=== PATIENT | female | born 1985 | race Caucasian/White ===

== ENCOUNTER 2021-09-26 15:47 | Emergency (ER) | payer OTHER, SELFPAY ==
--- NOTE | ~2021-09-26 | CT_ITS ---
EXAMINATION: CT abdomen pelvis wo con DATE: 09/26/2021 19:25 INDICATION: Flank pain, lower back pain, bilateral hip pain starting today. History kidney stones. TECHNIQUE: Computed tomography (CT) of the abdomen and pelvis was performed without intravenous contr ast. Automated exposure control and iterative reconstruction technique were employed. Exam dose: 740 .49 mGy-cm total exam DLP. COMPARISON: May 06, 2014 CT abdomen pelvis FINDINGS: Normal heart size. No pericardial or pleural effusion. The lung bases are clear of infiltra te or consolidation. The liver, gallbladder, bile ducts, spleen, pancreas, pancreatic duct, and adrenal glands appear norm al. 2.6 mm nonobstructing upper pole left renal calculus 2.4 mm nonobstructing upper pole right renal calculus. No ureteral calculus or hydroureteronephrosis. The uterus is unremarkable. Left ovary unremarkable. Approximately 3.5 x 3.7 cm right dermoid, with soft tissue and fat density and calcification. Normal caliber of the abdominal aorta. No intraperitoneal or retroperitoneal or pelvic mass lesion or adenopathy or ascites is noted otherwise. Normal appendix. No bowel obstruction. Minimal diverticulosis of the descending colon; no CT evidence of diverticulitis.. No intraperitoneal free air. No suspicious osteolytic or osteoblastic lesions. IMPRESSION: Right adnexal dermoid tumor Minimal diverticulosis of the left colon; no CT evidence of diverticulitis Small nonobstructing calculus of each kidney; no hydroureteronephrosis Reviewed, dictated and finalized at [facility] Reviewed, dictated and finalized at [facility].
[2021-09-26 15:51] VITALS: BP 142/80; PULSE 124; RESP 18; TEMP 37.3; O2SAT 100
[2021-09-26] MEDS: ONDANSETRON INJ 4 MG/2 ML VIAL IV PUSH (17:01)
[2021-09-26] MEDS: MORPHINE SULFATE (*CRX) 4 MG/ML INJ IV PUSH ×2 (17:01→19:29)
[2021-09-26] MEDS: SODIUM CHLORIDE 0.9% IV 1,000 ML 999 ML IV CONT ×2 (17:01→19:53)
[2021-09-26 17:11] LABS: Basophils Percent Auto 0.4 % (0.2-1.2); Eosinophils Absolute Auto 0.1 K/mm3 (0-0.3); Hematocrit 42.2 % (37.0-47.0); Hemoglobin 13.8 g/dL (12.0-15.0); Immature Granulocyte Absolute 0.06 K/mm3 (0.00-0.031); Immature Granulocyte Percent A 0.7 % (0-0.5); Lymphocytes Absolute Auto 0.32 K/mm3 (0.9-3.2); Lymphocytes Percent Auto 3.9 % (18.3-44.2); Mean Corpuscular HGB Conc 32.7 g/dl (32-36); Mean Corpuscular Hemoglobin 29.7 pg (26-34); Mean Corpuscular Volume 90.8 fl (80-100); Mean Platelet Volume 11.1 fl (7.4-10.4); Monocytes Absolute Auto 0.7 K/mm3 (0.1-0.6); Neutrophils Absolute Auto 6.9 K/mm3 (1.3-6.7); Platelet Count Result 244 k/mm3 (150-375); Red Blood Count 4.65 M/mm3 (4.2-5.4); White Blood Count 8.1 K/mm3 (4.5-10.0)
[2021-09-26 17:48] LABS: SARS-CoV-2 RNA PCR Positive
[2021-09-26 18:20] LABS: Influenza A QL RT-PCR Negative (Negative); Influenza B QL RT-PCR Negative (Negative)
--- NOTE | 2021-09-26 19:11 | ED.GENADULT ---
HPI - General Adult General Chief complaint: Back Pain/Injury Stated complaint: low back pain Time Seen by Provider: 09/26/21 16:17 History of Present Illness HPI narrative: Patient is a 36-year-old female who presents ER with right-sided back pain. Reports she woke up this morning began having progressive increase in the pain in her back. Also located in her hips. Reports she has been having fevers and chills today. No runny nose or sore throat has had a mild dry cough. No known sick contacts. No urinary frequency urgency or dysuria. Pain worse with movement and occasionally grabs her. No nausea or vomiting. Has history of kidney stones in the past. Has not had a kidney infection previously. Related Data Allergies Allergy/AdvReac Type Severity Reaction Status Date / Time No Known Allergies Allergy Verified 09/26/21 19:28 Review of Systems Review of Systems: All systems reviewed & are unremarkable except as noted in HPI and below Constitutional: Constitutional: Reports chills, Reports fatigue, Reports fever(s) and Denies weakness ENT: Denies nasal congestion and Denies sore throat Cardiovascular: Cardiovascular: Denies chest pain, Denies rapid heart rate and Denies radiating jaw, neck or arm pain Respiratory: Respiratory: Denies cough and Denies dyspnea Gastrointestinal: Gastrointestinal: Denies abdominal pain, Denies constipation, Reports nausea and Reports vomiting Genitourinary: Genitourinary: Denies nocturia, Denies dysuria and Reports flank pain Musculoskeletal: Musculoskeletal: Reports myalgias, Denies arthralgias and Denies joint swelling Neurologic: Denies headache(s), Denies focal weakness and Denies numbness PMFSH Past Medical History Medical History (Updated 09/26/21 @ 20:16 by David Willingham MD) ADHD Anxiety disorder, unspecified Elevated blood sugar Encounter for gynecological examination (general) (routine) without abnormal findings Encounter for preventative adult health care examination History of kidney stones Hypertension Neutrophilic leukocytosis Pre-menstrual mood disorder Screening for cervical cancer Severe obesity (BMI >= 40) Traumatic hematoma of right knee Type 2 diabetes mellitus without complications Surgical History Surgical History (Updated 09/26/21 @ 19:34 by David Willingham MD) No pertinent past surgical history Family History Family History Father Depression Anxiety Mother Anxiety Depression Sibling Anxiety Depression Social History Social History Smoking status: Former smoker Second hand tobacco smoke exposure: No Smoking end date: 03/22/14 Alcohol intake: current Substance use: never 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 HEAD: Normocephalic, atraumatic. NECK: Supple. CHEST: Clear to auscultation. No respiratory distress. HEART: Tachycardic and regular. Normal peripheral pulses. ABDOMEN: Soft, nontender, nondistended. Right CVA tenderness. Back: No midline tenderness of the thoracic and lumbar spine. No reproducible paraspinal muscular tenderness on the left side. There is tenderness in the right CVA region with percussion as well as palpation and with spasm noted. No upper paraspinal thoracic tenderness or lower lumbar paraspinal tenderness. EXTREMITIES: Normal range of motion. No edema. SKIN: Warm, dry, no rash. NEURO: Alert and oriented x3. PSYCH: Normal mood and affect. Course Course Emergency Course: Patient feeling improved. Given 2 L of IV fluid. She is unvaccinated against COVID. Will prescribe Paxlovid. Discussed isolation at home for total 5 days and then wearing a mask in public for an additional 5 days after that. Patient to contact PCP
[2021-09-26 19:19] LABS: Appearance Urine Clear (Clear); Bilirubin Urine Negative (Negative); Blood Urine Negative (Negative); Color Urine Yellow (Yellow); Glucose Urine UA Negative (Negative); Ketones Urine 4+ mg/dL (Negative); Leukocyte Esterase Ur Negative LEU/UL (Negative); Nitrate Urine Negative (Negative); Protein Urine Trace mg/dL (Negative); Urobilinogen Urine 0.2 mg/dL (<2.0)
[2021-09-26 19:25] LABS: Add Urine Microscopic? YES; Mucus Urine Rare /lpf; RBC Urine 0-2 /hpf (0-2); Squamous Epithelial Cell Urine Few /hpf (Few); WBC Urine 0-3 /hpf
[2021-09-26 19:37] LABS: Alanine Aminotransferase 30 U/L (6-35); Albumin Level 4.5 g/dL (3.5-5.1); Alkaline Phosphatase 114 U/L (38-126); Anion Gap 8 mmol/L (8-16); Aspartate Amino Transferase 27 U/L (14-36); Bilirubin,Total 0.1 mg/dL (0.2-1.3); Blood Urea Nitrogen 6 mg/dL (7-17); Calcium 8.7 mg/dL (8.4-10.2); Carbon Dioxide 24 mmol/L (22-30); Chloride 103 mmol/L (98-107); Estimated CRCL calculation 128 ml/min; Estimated Glomerular Filt Rate > 60; Glucose 156 mg/dL (65-110); Potassium 3.5 mmol/L (3.4-5.0); Sodium 135 mmol/L (137-145)
[2021-09-26 19:38] LABS: Lactic Acid Reflex 1.3 mmol/L (0.7-2.0)
[2021-09-26 20:46] VITALS: BP 127/81; PULSE 115; RESP 16; O2SAT 98
== END 2021-09-26 20:47 | disposition home or self-care (01) ==
PROVIDERS: Emergency Provider Emergency Medicine; PCP Internal Medicine
DX: U07.1 COVID-19 (principal); D27.0 Benign neoplasm of right ovary; I10 Essential (primary) hypertension; E66.01 Morbid (severe) obesity due to excess calories; Z68.30 Body mass index [BMI] 30.0-30.9, adult; E11.9 Type 2 diabetes mellitus without complications; Z28.310 Unvaccinated for COVID-19; Z87.442 Personal history of urinary calculi; Z87.891 Personal history of nicotine dependence; K57.90 Diverticulosis of intestine, part unspecified, without perforation or abscess without bleeding; N20.0 Calculus of kidney; Z79.84 Long term (current) use of oral hypoglycemic drugs
CPT/HCPCS: 36415; 74176; 80053; 81001; 81025; 83605; 85025; 87502; 96361; 96374; 96375; 96376; 99284; C9803; J2270; J2405; J7030; U0003; U0005

== ENCOUNTER 2022-01-26 14:24 | Outpatient (CLI) | payer OTHER, SELFPAY ==
[2022-01-26 19:07] LABS: Hemoglobin A1C 7.2 % (<5.7)
== END 2022-01-26 14:25 | disposition home or self-care (01) ==
LOC: ANHGOSHLAB 14:27
PROVIDERS: PCP Family Medicine; Visit Provider Family Medicine
DX: E11.9 Type 2 diabetes mellitus without complications (principal)
CPT/HCPCS: 36415; 83036

== ENCOUNTER 2022-02-08 07:52 | Emergency (ER) | payer OTHER, SELFPAY ==
--- NOTE | ~2022-02-08 | XR_ITS ---
EXAMINATION: XR shoulder RT min 2V DATE: 02/08/2022 08:20 INDICATION: Right shoulder pain TECHNIQUE: AP internally and externally rotated, AP oblique externally rotated and transscapular Y vi ews of the right shoulder were obtained. COMPARISON: None FINDINGS: Normal alignment. No fracture. Glenohumeral joint is normal. Mild right acromioclavicular osteoarthr itis. Soft tissues are unremarkable. IMPRESSION: Mild right acromioclavicular osteoarthritis. Reviewed, dictated and finalized at [facility]. TELEPHONE TRIAGE
[2022-02-08 07:53] VITALS: BP 140/92; PULSE 105; RESP 18; TEMP 36.8; O2SAT 100
--- NOTE | 2022-02-08 09:12 | ED.GENADULT ---
HPI - General Adult General Chief complaint: Extremity Injury, Upper Stated complaint: right shoulder pain Time Seen by Provider: 02/08/22 09:01 History of Present Illness HPI narrative: 37-year-old female presents for evaluation of constant tenderness in the scalene muscles on her right side which radiates down her arm at times. Pain is worse with movement and she has tried everything and the pain is not improving. She has seen her primary doctor and informs me that he did nothing . During further conversation patient shares with me that he has offered physical therapy as well as given her medication recommendations but she does not believe any of it will work . She denies trauma. She denies limited range of motion. She denies loss of sensation or strength. Patient admits to sleeping on her abdomen with her head turned to the right side. Related Data Allergies Allergy/AdvReac Type Severity Reaction Status Date / Time No Known Allergies Allergy Verified 01/26/22 16:39 Review of Systems Review of Systems: CONSTITUTIONAL: Denies fever, chills, or sweats. EYES: Denies visual changes, redness, or discharge. ENT: Denies rhinorrhea, congestion, sore throat, or otalgia. CARDIOVASCULAR: Denies chest pain, palpitations, or edema. RESPIRATORY: Denies cough or dyspnea. GASTROINTESTINAL: Denies abdominal pain, nausea, vomiting, or diarrhea. GENITOURINARY: Denies dysuria or hematuria. SKIN: Denies rash or itching. MUSCULOSKELETAL: Denies back pain, joint pain, or myalgia. NEUROLOGIC: Denies headache, numbness, or weakness. PSYCHIATRIC: Denies anxiety or depression. [facility] Past Medical History Medical History ADHD Anxiety disorder, unspecified Elevated blood sugar Encounter for gynecological examination (general) (routine) without abnormal findings Encounter for preventative adult health care examination History of kidney stones Hypertension Neutrophilic leukocytosis Pre-menstrual mood disorder Screening for cervical cancer Severe obesity (BMI >= 40) Traumatic hematoma of right knee Type 2 diabetes mellitus without complications Surgical History Surgical History No pertinent past surgical history Family History Family History Father Depression Anxiety Mother Anxiety Depression Sibling Anxiety Depression Social History Social History Smoking status: Former smoker Second hand tobacco smoke exposure: No Smoking end date: 03/22/14 Alcohol intake: current Substance use: never 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 HEAD: Normocephalic, atraumatic. EYES: PERRLA and EOMI. ENT: Nares clear, no rhinorrhea or epistaxis. Mucous membranes moist. NECK: Supple. Full range of motion CHEST: Clear to auscultation. No respiratory distress. HEART: Regular rate and rhythm. No murmur heard. Normal peripheral pulses. ABDOMEN: Soft, nontender, nondistended, normal active bowel sounds. EXTREMITIES: Normal range of motion. No edema. Palpable muscle spasm noted at posterior and middle scalene. 5 out of 5 strength and full range of motion both passively and actively SKIN: Warm, dry, no rash. NEURO: No focal deficits. Alert and oriented x3. PSYCH: Normal mood and affect. Anxious, tearful, confrontational Course Vital Signs Vital signs: Vital Signs Temperature 98.2 F 02/08/22 07:53 Pulse Rate 105 H 02/08/22 07:53 Respiratory Rate 18 02/08/22 07:53 Blood Pressure 140/92 H 02/08/22 07:53 Pulse Oximetry 100 02/08/22 07:53 Temperature 98.2 F 02/08/22 07:53 Pulse Rate 105 H 02/08/22 07:53 Respiratory Rate 18 02/08/22 07:53 Blo
[2022-02-08] MEDS: IBUPROFEN 600 MG TABLET PO (09:30)
== END 2022-02-08 09:30 | disposition home or self-care (01) ==
PROVIDERS: Emergency Provider Emergency Medicine; PCP Family Medicine
DX: M62.838 Other muscle spasm (principal); I10 Essential (primary) hypertension; E11.9 Type 2 diabetes mellitus without complications; E66.01 Morbid (severe) obesity due to excess calories; Z68.29 Body mass index [BMI] 29.0-29.9, adult; F90.9 Attention-deficit hyperactivity disorder, unspecified type; F41.9 Anxiety disorder, unspecified; Z87.442 Personal history of urinary calculi; Z79.84 Long term (current) use of oral hypoglycemic drugs; Z87.891 Personal history of nicotine dependence
CPT/HCPCS: 73030; 99283; A9270

== ENCOUNTER 2022-04-29 12:40 | Outpatient (CLI) | payer OTHER, SELFPAY ==
[2022-04-29 20:52] LABS: Beta HCG Quantitative 29.45 mIU/ML
== END 2022-04-29 12:41 | disposition home or self-care (01) ==
LOC: ANHGOSHLAB 12:41
PROVIDERS: PCP Family Medicine; Visit Provider Family Medicine
DX: Z32.01 Encounter for pregnancy test, result positive (principal)
CPT/HCPCS: 36415; 84443; 84702

== ENCOUNTER 2022-04-30 11:07 | Outpatient (CLI) | payer OTHER, SELFPAY ==
--- NOTE | ~2022-04-30 | US_ITS ---
EXAMINATION: US thyroid DATE: 04/30/2022 11:47 INDICATION: Nontoxic goiter. TECHNIQUE: Multiple ultrasound images of the thyroid were obtained. COMPARISON: None. FINDINGS: The right thyroid lobe measures 3.1 x 1.7 x 2.3 cm. The left thyroid lobe measures 3.7 x 1.3 x 1.9 c m. In the left thyroid lobe, there is a 5 mm solid, hypoechoic, wider than tall nodule with smooth m argin without echogenic foci (TI-RADS TR4). IMPRESSION: 1. Small thyroid nodule, likely not clinically significant. No follow-up is needed. Reviewed, dictated and finalized at [facility]. [employer] IMPRESSION: 1. Small thyroid nodule, likely not clinically significant. No follow-up is nee ded.
== END 2022-04-30 11:08 | disposition home or self-care (01) ==
PROVIDERS: PCP Family Medicine; Visit Provider Family Medicine
DX: E04.9 Nontoxic goiter, unspecified (principal)
CPT/HCPCS: 76536

== ENCOUNTER 2022-05-05 13:03 | Outpatient (CLI) | payer OTHER, SELFPAY | END 2022-05-05 13:04 | disposition home or self-care (01) | LOC: ANHGOSHLAB 13:04 | PROVIDERS: PCP Family Medicine; Visit Provider Family Medicine | DX: N92.6 Irregular menstruation, unspecified (principal); Z32.01 Encounter for pregnancy test, result positive | CPT/HCPCS: 36415; 84702 ==

== ENCOUNTER 2022-06-02 14:25 | Outpatient (CLI) | payer OTHER, SELFPAY ==
--- NOTE | 2022-06-02 14:32 | ECG_ITS ---
Measurements Intervals [place] Rate: 83 P: 15 MN: 113 QRS: 59 QRSD: 91 T: 13 QT: 346 QTc: 407 Interpretive Statements SINUS RHYTHM WITH SHORT MN INTERVAL INCOMPLETE RIGHT BUNDLE BRANCH BLOCK BORDERLINE ST-T WAVE ABNORMALITY- ANT/INF LEADS BASELINE ARTIFACT- V3-V6 BORDERLINE ECG NO PREVIOUS ECG AVAILABLE FOR COMPARISON Electronically Signed On 06-02-2022 15:15:23 CDT by Morgan Almanzar D.O.
== END 2022-06-02 14:26 | disposition home or self-care (01) ==
PROVIDERS: PCP Family Medicine; Visit Provider Obstetrics & Gynecology
DX: I10 Essential (primary) hypertension (principal); Z01.818 Encounter for other preprocedural examination; I45.10 Unspecified right bundle-branch block
CPT/HCPCS: 36415; 93005

== ENCOUNTER 2022-06-10 00:56 | Day surgery (SDC) | payer OTHER, SELFPAY ==
[2022-05-27 09:52] VITALS: BMI 30.4
--- NOTE | 2022-05-27 10:16 | SUR.PREOP ---
Report to the Outpatient Waiting Room, entrance under the green pavilion located off [facility], at time 0800 on date. Planned Procedure Time: 1000. Time changes happen often and if your time is changed the preop area will call you the afternoon before. - You and your visitor will be asked to self-screen and do not enter if you have any COVID symptoms. - Only one visitor is requested with a max of two and NO children visitors are allowed at this time. - The patient visitor may be requested to leave or wait in car when not with patient due to distancing restrictions. - A mask is optional within the hospital at this time. Patients may have clear liquids (water, carbonated beverages, clear teas, apple juice) until 3 hours prior to surgery with a maximum of 20 ounces. - No food from midnight until time of surgery 20 OUNCES BEFORE 0700AM - Infants may have breast milk until 4 hours before surgery, infant formula 6 hours prior to surgery. - Children will be allowed to drink immediately following surgery. If applicable, please bring a bottle or sippy cup to assist with drinking. Juice, water, soda, and popsicles are readily available. For infants on formula, please bring formula the day of surgery. Pacifiers are allowed. Take the following medications with a SIP of water the morning of surgery: ESCITALOPRAM, BUSPIRONE DO NOT STOP ANY OF YOUR OTHER PRESCRIPTION MEDICATIONS PRIOR TO SURGERY ?EXCEPT THE FOLLOWING Medications to discontinue per physician __METFORMIN, LISINOPRIL MORNING OF PROCEDURE Date to take last dose Please no make-up, nail macanese, hairspray, perfume, deodorant, or body powder the day of surgery. No jewelry (including any body piercings) or valuables the day of surgery, leave them at home. Please take a shower or bath the night before, or the morning of, surgery with an antibacterial soap. Wear comfortable, loose fitting clothing. Children are encouraged to wear pajamas. - Jewelry must be removed prior to entering the operating room. Rings and piercings that are not removed may be cut off. - The hospital will not accept responsibility for valuables. - Please leave all valuables, including medications, at home the day of surgery. If you are going home after surgery, a licensed school bus driver/teacher assistant must drive you home. - NO public transportation without another adult if you receive anesthesia. - We recommend that an adult stay with you for 24 hours following discharge. - We also recommend that you do not drive, make important decision, drink alcoholic beverages, or take any drugs that were not prescribed by your health care provider for at least 24 hours after your discharge time. For Pediatric surgeries, we recommend two adults accompany the child home. Follow any additional instructions given to you from your surgeon. If you or anyone in your household have experienced Covid symptoms in the past week, please notify your surgeon or the nurse liaison at the phone number below for possible testing. Telephone instructions given to PATIENT and asked if any additional questions and then verbalized understanding. Patient advised to call surgeon office or pre surgery nurse liaison [phone] if any additional questions.
[2022-06-10] VITALS (10 sets, daily range): BP systolic 121–145; BP diastolic 65–94; PULSE 86–121; RESP 14–24; TEMP 36.5–36.6; O2SAT 97–100
[2022-06-10] MEDS: ACETAMINOPHEN 500 MG TABLET 1000 MG PO (08:13)
[2022-06-10] MEDS: LACTATED RINGERS 1,000 ML 30 ML IV CONT ×2 (08:31→11:31)
[2022-06-10] MEDS: KETOROLAC 15 MG/ML VIAL (*BKC) IV PUSH (08:33)
[2022-06-10] MEDS: SCOPOLAMINE 1.5 MG PATCH TRANSDERM (08:33)
--- NOTE | 2022-06-10 08:45 | WPDANESEPPF ---
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 Patient Data Age: 37 Gender: F Height: 1.7 m Weight: 87.5 kg Last Vital Signs Temp 36.6 C 06/10/22 08:08 Pulse 121 H 06/10/22 08:08 Resp 18 06/10/22 08:08 BP 145/88 H 06/10/22 08:08 Pulse Ox 100 06/10/22 08:08 O2 Del Method Room Air 06/10/22 08:08 Allergies Allergy/AdvReac Type Severity Reaction Status Date / Time No Known Allergies Allergy Verified 06/10/22 07:55 Home Medications Medication Instructions Recorded Confirmed Type blood-glucose meter (Blood Glucose #1 ea 05/20/20 06/10/22 Rx Monitoring kit) blood sugar diagnostic (OneTouch #100 ea 05/21/20 06/10/22 Rx Ultra Blue Test Strip) lancets (OneTouch UltraSoft #100 ea 05/21/20 06/10/22 Rx Lancets) lisinopril 5 mg tablet 5 mg PO DAILY #90 tabs 07/18/21 06/10/22 Rx metformin 500 mg tablet 1,000 mg PO BID #360 tabs 11/10/21 06/10/22 Rx dulaglutide 1.5 mg/0.5 mL 1.5 mg (0.5 mL) subcut WEEKLY #2 mL 03/02/22 06/10/22 Rx subcutaneous pen injector (Trulicity) buspirone 10 mg tablet 15 mg PO BID #90 tabs 05/12/22 06/10/22 Rx escitalopram oxalate 20 mg tablet 20 mg PO DAILY #90 tabs 05/28/22 06/10/22 Rx Laboratory Tests 06/10/22 08:24 Sodium Pending Potassium Pending Chloride Pending Carbon Dioxide Pending Anion Gap Pending BUN Pending Creatinine Pending Estim Creat Clear Calc Pending Estimated GFR Pending Glucose Pending Calcium Pending Patient hx anesthesia problems: none Family hx anesthesia problems: none Results Review: All pre-operative results and documents have been reviewed as part of the pre-operative evaluation. [facility] Past Medical History Medical History ADHD Anxiety disorder, unspecified Elevated blood sugar Encounter for gynecological examination (general) (routine) without abnormal findings Encounter for preventative adult health care examination History of kidney stones Hypertension Neutrophilic leukocytosis Pre-menstrual mood disorder Screening for cervical cancer Severe obesity (BMI >= 40) Traumatic hematoma of right knee Type 2 diabetes mellitus without complications Surgical History Surgical History No pertinent past surgical history Family History Family History Father Depression Anxiety Mother Anxiety Depression Sibling Anxiety Depression Social History Social History Smoking status: Never smoker Second hand tobacco smoke exposure: No Smoking end date: 03/22/14 Alcohol intake: former Substance use: never Lack of Transportation: No Lack of Food: Never True Current Housing: I Have Housing Concerned About Future Housing: No Difficulty Paying Gas/Electric Bills: No Difficulty Paying for Meds: No Currently Unemployed: No Education: High School Diploma/GED Difficulty w/ Childcare or Family Care: No Living arrangements: with family Occupation/Education: other 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
[2022-06-10 08:55] LABS: Anion Gap 8 mmol/L (8-16); Blood Urea Nitrogen 9 mg/dL (7-17); Carbon Dioxide 27 mmol/L (22-30); Chloride 105 mmol/L (98-107); Estimated CRCL calculation 126 ml/min; Estimated Glomerular Filt Rate > 60; Glucose 137 mg/dL (65-110); Potassium 3.9 mmol/L (3.4-5.0); Sodium 140 mmol/L (137-145)
[2022-06-10] MEDS: MIDAZOLAM HCL (*CRX) 2 MG/2 ML VIAL IV PUSH (08:55)
--- NOTE | 2022-06-10 09:31 | WPDHPUPDATE1 ---
History and Physical Update Update Date/Time: 06/10/22 09:31 History and Physical has been reviewed, including an updated exam of the patient. There are NO changes in the patient's condition. Risks, benefits, and alternatives have been discussed and questions answered. Patient agrees to proceed with procedure.
--- NOTE | 2022-06-10 10:53 | P.OP_ITS ---
Procedure Note - Detailed Date of Procedure 06/10/22 Pre-op Diagnosis benign keratoma of ovary Post-op Diagnosis Same Procedure Performed Right ovarian cystectomy Surgeon Do Darden MD Anesthesia General Indications right ovarian mass Findings 5 cm ovarian teratoma Description of Procedure The patient was taken to the operating room. She was prepped and draped in the dorsal lithotomy position after induction general anesthesia. A 5 mm incision was made with a scalpel on the abdominal skin in the left upper quadrant of the abdomen. A 5 mm trocar was inserted into the intra-abdominal cavity under direc t visualization the scope. In the same fashion a 11 mm left lower quadrant trocar was inserted and a 5 mm infraumbilical trocar was inserted. right ovarian cystectomy was performed using scissors, cautery, graspers. The mass was placed in an endobag and taken out the left lower quadrant trocar. The mucinous fluid was drained from the cyst was suctioned from the pelvis and a copious irrigation was used to rinse the pelvis. About 50% of the right ovary remained. The pelvis was irrigated. The pneumoperitoneum was reduced. The trocars were removed. Skin was closed with subcuticular 4 micro. The patient's incisions were covered with Dermabond. She was taken recovery room in stable condition. Sponge lap and needle counts were correct x2. Complications No immediate complications Condition Stable Disposition Same day
[2022-06-10 11:14] LABS: Glucose Point of Care 119 mg/dl (65-105)
[2022-06-10] MEDS: fentaNYL CITRATE INJ (*CRX) 100 MCG/2 ML VIAL 25 MCG IV PUSH ×8 (11:18→11:40)
[2022-06-10] MEDS: HYDROmorphone HCL INJ (*CRX) 1 MG/ML SYR 0.5 MG IV PUSH ×2 (11:51→11:57)
[2022-06-10] MEDS: oxyCODONE HCL (*CRX) 5 MG TAB IR PO (12:30)
== END 2022-06-10 13:21 | disposition home or self-care (01) ==
PROVIDERS: Anesthesiology; PCP Family Medicine; Visit Provider Obstetrics & Gynecology
PROC: (CPT 49320; principal; 2022-06-10 10:00)
DX: D27.0 Benign neoplasm of right ovary (principal); E11.9 Type 2 diabetes mellitus without complications; I10 Essential (primary) hypertension; F41.9 Anxiety disorder, unspecified; F90.9 Attention-deficit hyperactivity disorder, unspecified type; E66.9 Obesity, unspecified; Z68.30 Body mass index [BMI] 30.0-30.9, adult; Z79.84 Long term (current) use of oral hypoglycemic drugs; Z79.899 Other long term (current) drug therapy
CPT/HCPCS: 58661; 36415; 80048; 82948; 88305; A9270; J1100; J1170; J1885; J2250; J2405; J2704; J2710; J3010; J7030; J7120

== ENCOUNTER 2022-09-24 15:18 | Emergency (ER) | payer OTHER, SELFPAY ==
[2022-09-24] VITALS (7 sets, daily range): BP systolic 134–155; BP diastolic 66–82; PULSE 77–96; RESP 8–19; TEMP 36.4; O2SAT 98–100
--- NOTE | ~2022-09-24 | CT_ITS ---
EXAMINATION: CT abdomen pelvis wo con DATE: 09/24/2022 17:47 INDICATION: Left flank pain. History kidney stones. TECHNIQUE: Computed tomography (CT) of the abdomen and pelvis was performed without intravenous contr ast. Automated exposure control and iterative reconstruction technique were employed. Exam dose: 720 .98 mGy-cm total exam DLP. COMPARISON: 09/26/2021 CT abdomen pelvis FINDINGS: The lung bases are clear. Normal heart size. No pericardial or pleural effusion. The liver, gallbladder, bile ducts, spleen, pancreas, pancreatic duct, and adrenal glands are unremar kable. A couple of subtle pinpoint nonobstructing right renal calculi are noted. Suggestion of very subtle s mall pinpoint nonobstructing left renal calculus. No ureteral calculi or hydroureteronephrosis are noted. Urinary bladder, uterus and adnexal areas are unremarkable. Normal caliber of the abdominal aorta. No intraperitoneal or retroperitoneal or pelvic mass lesion or adenopathy or ascites. Normal appendix. No bowel obstruction, bowel wall thickening, pneumatosis or intraperitoneal free air is detected. Normal caliber of the abdominal aorta. No intraperitoneal or retroperitoneal or pelvic mass lesion or adenopathy or ascites. Very small fat-containing umbilical hernia. Included skeletal structures are unremarkable. IMPRESSION: Minimal nonobstructive nephrolithiasis; no ureteral calculus or hydroureteronephrosis Normal appendix Reviewed, dictated and finalized at [facility]. Reviewed, dictated and finalized at [facility]. IMPRESSION: Minimal nonobstructive nephrolithiasis; no ureteral calculus or hy droureteronephrosis Normal appendix
--- NOTE | 2022-09-24 16:02 | ED.FEMALEGU ---
HPI - Female Genitourinary General Chief complaint: Urogenital-Female <Iron Dumont APRN - Last Filed: 09/24/22 18:15> Stated complaint: kidney stones <Iron Dumont APRN - Last Filed: 09/24/22 18:15> Time Seen by Provider: 09/24/22 15:55 <Iron Dumont APRN - Last Filed: 09/24/22 18:15> History of Present Illness HPI Narrative: 37-year-old female history of kidney stones, diabetes anxiety presents to the emergency room for evaluation of left flank pain. Onset of pain was sudden. States pain radiates into her left pelvic region. Associated with nausea vomiting and inability to get comfortable. <Iron Dumont APRN - Last Filed: 09/24/22 18:15> Related Data Allergies/Adverse reactions: Allergies Allergy/AdvReac Type Severity Reaction Status Date / Time No Known Allergies Allergy Verified 07/30/22 10:01 <Iron Dumont APRN - Last Filed: 09/24/22 18:15> Review of Systems Review of Systems: CONSTITUTIONAL: Denies fever, chills, or sweats. EYES: Denies visual changes, redness, or discharge. ENT: Denies rhinorrhea, congestion, sore throat, or otalgia. CARDIOVASCULAR: Denies chest pain, palpitations, or edema. RESPIRATORY: Denies cough or dyspnea. GASTROINTESTINAL: Reports flank pain and nausea GENITOURINARY: Denies dysuria or hematuria. SKIN: Denies rash or itching. MUSCULOSKELETAL: Denies back pain, joint pain, or myalgia. NEUROLOGIC: Denies headache, numbness, dizziness, or weakness. PSYCHIATRIC: Denies anxiety or depression. <Iron Dumont APRN - Last Filed: 09/24/22 18:15> PMFSH Past Medical History Medical History: Medical History ADHD Anxiety disorder, unspecified Elevated blood sugar Encounter for gynecological examination (general) (routine) without abnormal findings Encounter for preventative adult health care examination History of kidney stones Hypertension Neutrophilic leukocytosis Pre-menstrual mood disorder Screening for cervical cancer Severe obesity (BMI >= 40) Traumatic hematoma of right knee Type 2 diabetes mellitus without complications <Iron Dumont APRN - Last Filed: 09/24/22 18:15> Surgical History Surgical History: Surgical History H/O removal of cyst Removed from cyst 06/10/2022 No pertinent past surgical history <Iron Dumont APRN - Last Filed: 09/24/22 18:15> Family History Family History: Family History Father Depression Anxiety Mother Anxiety Depression Sibling Anxiety Depression <Iron Dumont APRN - Last Filed: 09/24/22 18:15> Social History Social History: Social History Smoking status: Never smoker Second hand tobacco smoke exposure: No Smoking end date: 03/22/14 Alcohol intake: former Substance use: never Lack of Transportation: No Lack of Food: Never True Current Housing: I Have Housing Concerned About Future Housing: No Difficulty Paying Gas/Electric Bills: No Difficulty Paying for Meds: No Currently Unemployed: No Education: High School Diploma/GED Difficulty w/ Childcare or Family Care: No Living arrangements: with family Occupation/Education: other 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 HEAD: Normocephalic, atraumatic. EYES: Conjunctivae normal, PERRLA and EOMI. CHEST: Clear to auscultation. No respiratory distress. No wheezes rales or rhonchi. HEART: Regular rate and rhythm. No murmur heard. Normal peripheral pulses. ABD: Left lower quadrant tenderness, bowel sounds present x4 no
[2022-09-24] MEDS: ONDANSETRON INJ 4 MG/2 ML VIAL IV PUSH (16:20)
[2022-09-24] MEDS: SODIUM CHLORIDE 0.9% IV 1,000 ML 999 ML IV CONT (16:21)
[2022-09-24] MEDS: MORPHINE SULFATE (*CRX) 4 MG/ML INJ IV PUSH (16:21)
[2022-09-24] MEDS: KETOROLAC 30 MG/ML VIAL (*BKC) IV PUSH (16:21)
[2022-09-24 16:28] LABS: Basophils Absolute Auto 0.1 K/mm3 (0.0-0.1); Basophils Percent Auto 0.4 % (0.2-1.2); Eosinophils Absolute Auto 0.4 K/mm3 (0-0.3); Eosinophils Percent Auto 2.2 % (0-4.4); Hematocrit 45.6 % (37.0-47.0); Hemoglobin 14.6 g/dL (12.0-15.0); Immature Granulocyte Absolute 0.07 K/mm3 (0.00-0.031); Immature Granulocyte Percent A 0.4 % (0-0.5); Lymphocytes Absolute Auto 2.48 K/mm3 (0.9-3.2); Lymphocytes Percent Auto 14.9 % (18.3-44.2); Mean Corpuscular Hemoglobin 30.3 pg (26-34); Mean Corpuscular Volume 94.6 fl (80-100); Mean Platelet Volume 10.6 fl (7.4-10.4); Monocytes Absolute Auto 0.9 K/mm3 (0.1-0.6); Monocytes Percent Auto 5.4 % (2.6-8.5); Neutrophils Absolute Auto 12.8 K/mm3 (1.3-6.7); Neutrophils Percent Auto 76.7 % (45.5-73.1); Platelet Count Result 265 k/mm3 (150-375); Red Blood Count 4.82 M/mm3 (4.2-5.4); Red Cell Distribution Width 12.8 % (11.5-14.5); White Blood Count 16.6 K/mm3 (4.5-10.0)
[2022-09-24 16:36] LABS: Alanine Aminotransferase 21 U/L (6-35); Albumin Level 4.5 g/dL (3.5-5.1); Alkaline Phosphatase 108 U/L (38-126); Anion Gap 10 mmol/L (8-16); Aspartate Amino Transferase 27 U/L (14-36); Bilirubin,Total 0.6 mg/dL (0.2-1.3); Blood Urea Nitrogen 11 mg/dL (7-17); Calcium 9.6 mg/dL (8.4-10.2); Carbon Dioxide 27 mmol/L (22-30); Chloride 102 mmol/L (98-107); Estimated CRCL calculation 97 ml/min; Estimated Glomerular Filt Rate > 60; Glucose 144 mg/dL (65-110); Lipase 79 U/L (23-300); Potassium 4.2 mmol/L (3.4-5.0); Sodium 139 mmol/L (137-145)
[2022-09-24 17:29] LABS: Appearance Urine Cloudy (Clear); Bacteria Urine None Seen /hpf; Bilirubin Urine Negative (Negative); Blood Urine 3+ (Negative); Color Urine Yellow (Yellow); Glucose Urine UA Negative (Negative); Ketones Urine 1+ mg/dL (Negative); Leukocyte Esterase Ur Negative LEU/UL (Negative); Nitrate Urine Negative (Negative); Non Pathogenic Casts 0-2; Protein Urine Trace mg/dL (Negative); RBC Urine >100 /hpf (0-2); Specific Grav Ur 1.021 (1.001-1.035); Squamous Epithelial Cell Urine Occasional /hpf (Few); Urobilinogen Urine 0.2 mg/dL (<2.0); WBC Urine 0-5 /hpf
[2022-09-24 17:45] LABS: Add Urine Microscopic? YES
== END 2022-09-24 19:59 | disposition home or self-care (01) ==
PROVIDERS: Nurse Practitioner Family; Emergency Provider Nurse Practitioner Family; PCP Family Medicine
DX: R10.9 Unspecified abdominal pain (principal); E11.9 Type 2 diabetes mellitus without complications; I10 Essential (primary) hypertension
CPT/HCPCS: 36415; 74176; 80053; 81001; 81025; 83690; 85025; 96361; 96374; 96375; 99284; J1885; J2270; J2405; J7030

== ENCOUNTER 2022-11-17 17:49 | Emergency (ER) | payer OTHER, SELFPAY ==
--- NOTE | 2022-11-17 18:05 | ED.URI ---
HPI - URI/Sore Throat General Chief Complaint: Upper Respiratory Infection Stated Complaint: flu like symptoms Source: patient and RN notes reviewed History of Present Illness HPI Narrative: 37 yo F presents to urgent care with complaints of body aches, specifically her back. Pt reports fevers at home and a sore throat initially that is improving. Pt denies any vomiting, diarrhea, abdominal pain, or ear pain. Pt reports having chest pain earlier, states she has a little when she takes a deep breath. Pt has taken Tylenol at home. Related Data Home Medications Medication Instructions Recorded Confirmed alprazolam 0.5 mg tablet 0.5 mg PO PRN PRN anxiety 11/17/22 11/17/22 Allergies Allergy/AdvReac Type Severity Reaction Status Date / Time No Known Allergies Allergy Verified 11/17/22 18:06 Review of Systems Review of Systems: Pertinent positives and pertinent negatives per HPI. [facility] Past Medical History Medical History ADHD Anxiety disorder, unspecified Elevated blood sugar Encounter for gynecological examination (general) (routine) without abnormal findings Encounter for preventative adult health care examination History of kidney stones Hypertension Neutrophilic leukocytosis Pre-menstrual mood disorder Screening for cervical cancer Severe obesity (BMI >= 40) Traumatic hematoma of right knee Type 2 diabetes mellitus without complications Surgical History Surgical History H/O removal of cyst Removed from cyst 06/10/2022 No pertinent past surgical history Family History Family History Father Depression Anxiety Mother Anxiety Depression Sibling Anxiety Depression Social History Social History Smoking status: Never smoker Second hand tobacco smoke exposure: No Smoking end date: 03/22/14 Alcohol intake: former Substance use: never Lack of Transportation: No Lack of Food: Never True Current Housing: I Have Housing Concerned About Future Housing: No Difficulty Paying Gas/Electric Bills: No Difficulty Paying for Meds: No Currently Unemployed: No Education: High School Diploma/GED Difficulty w/ Childcare or Family Care: No Living arrangements: with family Occupation/Education: other 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 There is no relevant family history pertinent to the patient complaint. Exam Narrative: GENERAL: This is a well-nourished, well-developed patient, in no apparent distress. HEAD: normocephalic, atraumatic. EYES: Sclera clear/white. Vision is grossly intact. EARS: External ears normal, auditory canals clear and without drainage. Hearing grossly intact. NOSE: External nose normal with no obvious nasal discharge, nares without redness, no rhinorrhea. THROAT: Mucous membranes moist, posterior pharynx clear. NECK: Neck supple, non-tender without lymphadenopathy, masses or thyromegaly. CARDIOVASCULAR: Regular rate and rhythm without murmurs, gallops, or rubs. RESPIRATORY: Clear to auscultation. Breath sounds equal bilaterally. No wheezes, rales, or rhonchi. SKIN: warm, intact with no suspicious lesions or rash, good texture and turgor. NEURO: awake, alert, and oriented to person, place and time. There were no obvious focal neurologic abnormalities. Course Course Level of Care: Express Care Visit Vital Signs Vital signs: reviewed MDM - URI/Sore Throat MDM Narrative Medical decision making narrative: Stay home for 5 days. If you have no symptoms or your symptoms are resolving after 5 days, you can leave your house. If you
[2022-11-17 18:10] VITALS: BP 158/99; PULSE 108; RESP 18; TEMP 36.9; O2SAT 100
== END 2022-11-17 18:32 | disposition home or self-care (01) ==
PROVIDERS: Emergency Provider Nurse Practitioner Family; PCP Family Medicine
DX: U07.1 COVID-19 (principal); Z87.891 Personal history of nicotine dependence; I10 Essential (primary) hypertension; E66.01 Morbid (severe) obesity due to excess calories; Z68.29 Body mass index [BMI] 29.0-29.9, adult; E11.9 Type 2 diabetes mellitus without complications; Z79.84 Long term (current) use of oral hypoglycemic drugs; F41.9 Anxiety disorder, unspecified
CPT/HCPCS: 87426; 87804; 99213; C9803; G0463

== ENCOUNTER 2023-05-09 07:48 | Emergency (ER) | payer OTHER, SELFPAY ==
--- NOTE | ~2023-05-09 | CT_ITS ---
EXAMINATION: CTA chest PE protocol DATE: 05/09/2023 09:04 INDICATION: Tachycardia and left-sided chest pain TECHNIQUE: Computed tomography (CT) pulmonary angiogram of the chest was performed with 100 mL Omnipa que-350 intravenous contrast. Additional 3D reconstructions utilizing coronal maximum intensity proje ction (MIP) were performed. Automated exposure control and iterative reconstruction technique were em ployed. The dose-length product was 320.68 mGy-cm. COMPARISON: None FINDINGS: No pulmonary embolism. There are some mosaic attenuation in the dependent lungs corresponding to mild atelectasis with subsegmental regions of more lucent air trapping likely related to small airway dis ease. No pneumonia, pulmonary edema, pleural effusion or pneumothorax. Heart size is normal. No peric ardial or pleural effusion. Thoracic aorta is normal in caliber with no dissection. No pathologically enlarged thoracic lymphadenopathy. 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 Visualized u pper abdomen is unremarkable. Chronic appearing mild likely physiologic anterior wedging at T12. IMPRESSION: 1. No pulmonary embolism. 2. Mosaic attenuation in the dependent lungs consistent with likely dependent atelectasis with small regions of subsegmental air trapping related to small airway disease. 3. Mild thymic hyperplasia. Reviewed, dictated and finalized at [facility]. SECURITY PROJECT MANAGER IMPRESSION: 1. No pulmonary embolism. 2. Mosaic attenuation in the dependent lungs consistent with likely dependent a telectasis with small regions of subsegmental air trapping related to small air way disease. 3. Mild thymic hyperplasia.
--- NOTE | ~2023-05-09 | XR_ITS ---
EXAMINATION: XR chest 2V DATE: 05/09/2023 08:47 INDICATION: 2 days of left-sided chest pain TECHNIQUE: PA and lateral views of the chest were obtained. COMPARISON: None FINDINGS: The lungs are clear with no focal airspace opacities, pulmonary edema, pleural effusion or pneumothor ax. The cardiomediastinal silhouette is normal. Peripheral IV at the medial right upper arm. Visualiz ed bones and soft tissues are unremarkable. IMPRESSION: 1. No acute cardiopulmonary disease. Reviewed, dictated and finalized at location [facility]. RT CAR DRIVER
--- NOTE | 2023-05-09 07:50 | ECG_ITS ---
Measurements Intervals [place] Rate: 123 P: 89 IL: 131 QRS: 92 QRSD: 81 T: -76 QT: 267 QTc: 382 Interpretive Statements SINUS TACHYCARDIA BORDERLINE RIGHT AXIS DEVIATION [QRS AXIS > 90] MARKED ST SEGMENT DEPRESSION CONSISTENT WITH ISCHEMIA ABNORMAL ECG COMPARED TO ECG 06/02/2022 14:47:57 HEART RATE INCREASED AND ST SEGMENT DEPRESSION IS MORE PRONOUNCED Electronically Signed On 05-09-2023 8:14:13 THERAPEUTIC ACTIVITIES SERVICES WORKER by Armani Pritchard M.D.
[2023-05-09 07:55] VITALS: BP 146/105; PULSE 122; RESP 14; TEMP 37; O2SAT 100
[2023-05-09 08:08] VITALS: BP 159/138; PULSE 128; RESP 18; O2SAT 100
--- NOTE | 2023-05-09 08:13 | ED.CHESTPAIN ---
HPI - Chest Pain General Chief Complaint: Chest Pain Stated Complaint: CP Time Seen by Provider: 05/09/23 07:56 History of Present Illness HPI narrative: This is a 38-year-old female, with history of diabetes and anxiety, presents emergency department complaining of chest pain for the past day. Patient states pain began yesterday afternoon, is described as dull rated 6/10 without aggravating or alleviating factors. The patient states pain has gradually improved to a 3/10. She has no other complaints at this time. Related Data Home Medications Medication Instructions Recorded Confirmed venlafaxine 75 mg capsule,extended 75 mg PO DAILY 02/01/23 02/01/23 release 24 hr (Effexor XR) Allergies Allergy/AdvReac Type Severity Reaction Status Date / Time No Known Allergies Allergy Verified 02/01/23 10:06 Review of Systems Review of Systems: CONSTITUTIONAL: Denies fever, chills, or sweats. CARDIOVASCULAR: Chest pain Denies palpitations, or edema. RESPIRATORY: Denies cough or dyspnea. GASTROINTESTINAL: Denies abdominal pain, nausea, vomiting, or diarrhea. GENITOURINARY: Last menstrual period 3 weeks ago; Denies dysuria or hematuria. SKIN: Denies rash or itching. MUSCULOSKELETAL: Denies back pain, joint pain, or myalgia. NEUROLOGIC: Denies headache, numbness, dizziness, or weakness. PSYCHIATRIC: Denies anxiety or depression. [facility] Past Medical History Medical History ADHD Anxiety disorder, unspecified Elevated blood sugar Encounter for gynecological examination (general) (routine) without abnormal findings Encounter for preventative adult health care examination History of kidney stones Hypertension Neutrophilic leukocytosis Pre-menstrual mood disorder Screening for cervical cancer Severe obesity (BMI >= 40) Traumatic hematoma of right knee Type 2 diabetes mellitus without complications Surgical History Surgical History H/O removal of cyst Removed from cyst 06/10/2022 No pertinent past surgical history Family History Family History Father Depression Anxiety Mother Anxiety Depression Sibling Anxiety Depression Social History Social History Smoking status: Current some day smoker Second hand tobacco smoke exposure: No Smoking end date: 03/22/14 Alcohol intake: former Substance use: never Lack of Transportation: No Lack of Food: Never True Current Housing: I Have Housing Concerned About Future Housing: No Difficulty Paying Gas/Electric Bills: No Difficulty Paying for Meds: No Currently Unemployed: No Education: High School Diploma/GED Difficulty w/ Childcare or Family Care: No Living arrangements: with family 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 EYES: PERRLA and EOMI. CHEST: Clear to auscultation. No respiratory distress. No wheezes rales or rhonchi HEART: Tachycardic with regular rhythm. No murmur heard. Normal peripheral pulses. ABDOMEN: Soft, nontender, nondistended, normal active bowel sounds. EXTREMITIES: Normal range of motion. No edema. SKIN: Warm, dry, no rash. NEURO: Alert and oriented x3. No focal deficit. Moving all 4 limbs spontaneously PSYCH: Normal mood and affect. Course Course Emergency Course: 10:29 - CBC demonstrates slightly elevated white blood cell count 10.7. Increase hemoglobin 16.4 with normal platelets. Chemistries demonstrate mild hyponatremia sodium of 133 but is otherwise unremarkable. Initial troponin negative. EKG initially demonstrated ST depressions with T-wave inversions in the inferi
[2023-05-09] MEDS: ASPIRIN 81 MG CHEWABLE TABLET 324 MG PO (08:18)
[2023-05-09] MEDS: ALPRAZolam (*CRX) 0.5 MG TABLET PO (08:19)
[2023-05-09] MEDS: MORPHINE SULFATE (*CRX) 4 MG/ML INJ IV PUSH (08:19)
[2023-05-09 08:25] LABS: Basophils Absolute Auto 0.1 K/mm3 (0.0-0.1); Basophils Percent Auto 0.6 % (0.2-1.2); Eosinophils Absolute Auto 0.2 K/mm3 (0-0.3); Eosinophils Percent Auto 1.5 % (0-4.4); Hematocrit 50.6 % (37.0-47.0); Hemoglobin 16.4 g/dL (12.0-15.0); Immature Granulocyte Absolute 0.03 K/mm3 (0.00-0.031); Immature Granulocyte Percent A 0.3 % (0-0.5); Lymphocytes Absolute Auto 2.03 K/mm3 (0.9-3.2); Lymphocytes Percent Auto 18.9 % (18.3-44.2); Mean Corpuscular HGB Conc 32.4 g/dl (32-36); Mean Corpuscular Hemoglobin 29.3 pg (26-34); Mean Corpuscular Volume 90.5 fl (80-100); Mean Platelet Volume 10.7 fl (7.4-10.4); Monocytes Absolute Auto 0.6 K/mm3 (0.1-0.6); Monocytes Percent Auto 5.6 % (2.6-8.5); Neutrophils Absolute Auto 7.9 K/mm3 (1.3-6.7); Neutrophils Percent Auto 73.1 % (45.5-73.1); Platelet Count Result 308 k/mm3 (150-375); Red Blood Count 5.59 M/mm3 (4.2-5.4); Red Cell Distribution Width 12.7 % (11.5-14.5); White Blood Count 10.7 K/mm3 (4.5-10.0)
--- NOTE | 2023-05-09 08:45 | ECG_ITS ---
Measurements Intervals [place] Rate: 98 P: 28 ND: 121 QRS: 62 QRSD: 85 T: -8 QT: 334 QTc: 426 Interpretive Statements SINUS RHYTHM NONSPECIFIC ST & T-WAVE ABNORMALITY ABNORMAL ECG COMPARED TO ECG 05/09/2023 07:54:34 HEART RATE IS REDUCED AND ST SEGMENT DEPRESSION IS IMPROVED Electronically Signed On 05-09-2023 14:11:42 CO FOUNDER AND CHAIRMAN by Armani Pritchard M.D.
[2023-05-09 09:04] LABS: Estimated CRCL calculation 121 ml/min; Estimated Glomerular Filt Rate > 60
[2023-05-09 10:05] LABS: Alanine Aminotransferase 15 U/L (6-35); Albumin Level 4.2 g/dL (3.5-5.1); Alkaline Phosphatase 97 U/L (38-126); Anion Gap 9 mmol/L (8-16); Aspartate Amino Transferase 25 U/L (14-36); Bilirubin,Total 0.7 mg/dL (0.2-1.3); Blood Urea Nitrogen 8 mg/dL (7-17); Calcium 9.5 mg/dL (8.4-10.2); Carbon Dioxide 25 mmol/L (22-30); Chloride 99 mmol/L (98-107); Estimated CRCL calculation 121 ml/min; Estimated Glomerular Filt Rate > 60; Glucose 228 mg/dL (65-110); Lipase 52 U/L (23-300); Sodium 133 mmol/L (137-145)
[2023-05-09 10:16] LABS: Troponin I < 0.012 ng/mL (0.000-0.034)
[2023-05-09 10:18] LABS: SPREG INTERNAL CONTROL Positive; Serum Qual hCG Negative
[2023-05-09 10:32] LABS: INR 0.9; Partial Thromboplastin Time 26.9 SECONDS (22.3-36.8); Prothrombin Time 12.9 Seconds (11.1-14.7)
[2023-05-09 10:47] LABS: D Dimer < 0.27 ug/mL (<0.48)
== END 2023-05-09 11:28 | disposition home or self-care (01) ==
PROVIDERS: Emergency Provider Preventive Medicine Aerospace Medicine; PCP Family Medicine
DX: R07.9 Chest pain, unspecified (principal); R94.31 Abnormal electrocardiogram [ECG] [EKG]; E11.9 Type 2 diabetes mellitus without complications; I10 Essential (primary) hypertension; E66.01 Morbid (severe) obesity due to excess calories; Z68.27 Body mass index [BMI] 27.0-27.9, adult; F90.9 Attention-deficit hyperactivity disorder, unspecified type; F41.9 Anxiety disorder, unspecified; Z87.442 Personal history of urinary calculi; Z87.891 Personal history of nicotine dependence; Z79.84 Long term (current) use of oral hypoglycemic drugs; R00.0 Tachycardia, unspecified; E32.0 Persistent hyperplasia of thymus
CPT/HCPCS: 36415; 71046; 71275; 80053; 83690; 84484; 84703; 85025; 85380; 85610; 85730; 93005; 96374; 99284; A9270; J2270; Q9967

== ENCOUNTER 2023-05-27 08:17 | Outpatient (CLI) | payer OTHER, SELFPAY ==
--- NOTE | 2023-05-27 08:36 | ECHO_ITS ---
Patient Info Name: Xiomara Larios Age: 38 years : 1985 Gender: Female Ht: 67 in Wt: 188 lbs BSA: 2.03 m2 HR: 81 bpm BP: 131 / 93 mmHg Technical Quality: Good Exam Date: 05/27/2023 8:52 AM Exam Location: Echo Lab Patient Status: Outpatient Admit Date: 05/27/2023 Staff Ordering Physician: Higinio Ramey DO Conference Organizer: Attending Provider: Higinio Ramey DO Referring Physician: Tanvir MORTON; Exam Type: CA echo doppler color flow Study Info Indications R07.9 - Chest pain, unspecified Complete two-dimensional, color flow and Doppler transthoracic echocardiogram is performed. Summary 1. Complete two-dimensional, color flow and Doppler transthoracic echocardiogram is performed. 2. Left ventricular chamber dimension is normal. 3. Left ventricular systolic function is normal, estimated at 60-65%. 4. The left ventricular diastolic function is normal. 5. E/e' 6 is not elevated. 6. There is trace mitral valve regurgitation. 7. There is trace pulmonic regurgitation. Left Ventricle E/e' 6 is not elevated. Left ventricular chamber dimension is normal. Left ventricular systolic function is normal, estimated at 60-65%. The left ventricular diastolic function is normal. Right Ventricle Right ventricular systolic function is normal and with normal TAPSE 1.9 cm. Right ventricular chamber dimension is normal. Left Atria Left atrial chamber dimension is normal. Right Atria Right atrial chamber dimension is normal. Aortic Valve The aortic valve is trileaflet. There is no aortic valve stenosis. There is no aortic valve regurgitation. Pulmonic Valve There is trace pulmonic regurgitation. Mitral Valve There is no mitral valve stenosis. There is trace mitral valve regurgitation. Tricuspid Valve There is no tricuspid valve regurgitation. Pericardium/Pleural There is no pericardial effusion. Inferior Vena Cava Normal inferior vena cava with >50% collapse upon inspiration consistent with normal right atrial pressure, 5 mmHg. Aorta The aortic root size at the sinus of Valsalva is normal. Left Ventricular Outflow Tract Name Value Normal LVOT 2D LVOT Diameter 2.0 cm LVOT Doppler LVOT Peak Gradient 5 mmHg LVOT Mean Gradient 2 mmHg LVOT VTI 19 cm LVOT VTI/AV VTI Ratio 0.6 LVOT Stroke Volume 58 ml LVOT CO 4.3 l/min LVOT CI 2.1 l/min/m2 Pulmonic Valve Name Value Normal PV Doppler PV Peak Gradient 4 mmHg Mitral Valve Name Value Normal MV Doppler MV Decel Mcduffie
--- NOTE | 2023-05-27 08:44 | EST_ITS ---
Patient Info Name: Xiomara Larios Age: 38 years : 1985 Gender: Female Ht: 67 in Wt: 180 lbs BSA: 1.98 m2 HR: 87 bpm BP: 148 / 99 mmHg Heart Rhythm: Sinus Rhythm Exam Date: 05/27/2023 9:38 AM Exam Location: Echo Lab Patient Status: Outpatient Admit Date: 05/27/2023 Staff Ordering Physician: Higinio Ramey DO Attending Provider: Higinio Ramey DO Exercise Technologist: Ekaterina Maloney CT Exercise Physician: Morgan Almanzar DO Exam Type: CA stress test treadmill Study Info Indications R94.31 - Abnormal electrocardiogram ECG EKG A treadmill exercise stress test was performed. Summary 1. 1. Abnormal Jovanny exercise stress test for ischemic ST changes by ECG criteria. 2. 2. Good functional capacity, achieving 9.8 METS of workload. 3. 3. Appropriate HR response to exercise. 4. 4. Appropriate HR recovery at 1 minute post exercise. 5. 5. Baseline hypertension. 6. 6. No imaging with stress testing. 7. 7. Patient informed of the above results. Protocol: Jovanny Stress ECG Details Stage: REST Duration (min): 4 min : 40 sec Speed (mph): 0.0 Grade (%): 0 HR (bpm): 84 SBP (mmHg): 148 DBP (mmHg): 99 METS: --- Stage: REST Duration (min): 6 min : 14 sec Speed (mph): 0.0 Grade (%): 0 HR (bpm): 86 SBP (mmHg): 148 DBP (mmHg): 99 METS: --- Stage: STAGE 1 Duration (min): 1 min : 0 sec Speed (mph): 1.7 Grade (%): 10 HR (bpm): 107 SBP (mmHg): 148 DBP (mmHg): 99 METS: --- Stage: STAGE 1 Duration (min): 2 min : 0 sec Speed (mph): 1.7 Grade (%): 10 HR (bpm): 118 SBP (mmHg): 148 DBP (mmHg): 99 METS: --- Stage: STAGE 1 Duration (min): 3 min : 0 sec Speed (mph): 1.7 Grade (%): 10 HR (bpm): 111 SBP (mmHg): 184 DBP (mmHg): 107 METS: --- Stage: STAGE 2 Duration (min): 1 min : 0 sec Speed (mph): 2.5 Grade (%): 12 HR (bpm): 127 SBP (mmHg): 184 DBP (mmHg): 107 METS: --- Stage: STAGE 2 Duration (min): 2 min : 0 sec Speed (mph): 2.5 Grade (%): 12 HR (bpm): 129 SBP (mmHg): 179 DBP (mmHg): 104 METS: --- Stage: STAGE 2 Duration (min): 3 min : 0 sec Speed (mph): 2.5 Grade (%): 12 HR (bpm): 135 SBP (mmHg): 179 DBP (mmHg): 104 METS: --- Stage: STAGE 3 Duration (min): 1 min : 0 sec Speed (mph): 3.4 Grade (%): 14 HR (bpm): 149 SBP (mmHg): 171 DBP (mmHg): 89 METS: --- Stage: STAGE 3 Duration (min): 1 min : 38 sec Speed (mph): 3.4 Grade (%): 14 HR (bpm): 162 SBP (mmHg): 171 DBP (mmHg): 89 METS: --- Stage: RECOVERY Duration (min): 0 min : 21 sec Speed (mph): 0.0 Grade (%): 0 HR (bpm): 152 SBP (mmHg): 171 DBP (mmHg): 89 METS: --- Stage: RECOVERY Duration (min): 1 min : 21 sec Speed (mph): 0.0 Grade (%): 0 HR (bpm): 100 SBP (mmHg): 171 DBP (mmHg): 89 METS: --- Stage: RECOVERY Duration (min): 2 min : 21 sec Speed (mph): 0.0 Grade (%): 0 HR (bpm):
== END 2023-05-27 08:18 | disposition home or self-care (01) ==
LOC: ANHCARD 08:18
PROVIDERS: PCP Family Medicine; Visit Provider Family Medicine
DX: R07.9 Chest pain, unspecified (principal); R94.31 Abnormal electrocardiogram [ECG] [EKG]
CPT/HCPCS: 93017; 93306

== ENCOUNTER 2023-06-11 08:10 | Outpatient (CLI) | payer OTHER, SELFPAY ==
[2023-06-11 15:30] LABS: Cholesterol 158 mg/dL (0-200); HDL Direct 39 mg/dL; Triglycerides 86 mg/dL (<150)
[2023-06-11 15:42] LABS: LDL Cholesterol Direct 101 mg/dL
== END 2023-06-11 08:11 | disposition home or self-care (01) ==
LOC: ANHGOSHLAB 08:11
PROVIDERS: PCP Family Medicine; Visit Provider Internal Medicine Cardiovascular Disease
DX: E11.9 Type 2 diabetes mellitus without complications (principal)
CPT/HCPCS: 36415; 80061

== ENCOUNTER 2023-08-03 10:16 | Outpatient (CLI) | payer OTHER, SELFPAY ==
[2023-08-03 21:40] LABS: Creatinine Urine 48.9 mg/dL
[2023-08-03 21:46] LABS: MALB Creatinine Ratio < 12.3 mg/g (0-30); Microalbumin Urine Random < 6.0 mg/L (0-16.7)
[2023-08-03 22:33] LABS: Hemoglobin A1C 8.5 % (<5.7)
== END 2023-08-03 10:17 | disposition home or self-care (01) ==
LOC: ANHGOSHLAB 10:17
PROVIDERS: PCP Family Medicine; Visit Provider Family Medicine
DX: E11.9 Type 2 diabetes mellitus without complications (principal); Z13.228 Encounter for screening for other metabolic disorders
CPT/HCPCS: 36415; 80053; 82043; 83036

== ENCOUNTER 2023-08-04 10:12 | Outpatient (CLI) | payer OTHER, SELFPAY ==
[2023-08-04 19:40] LABS: Alanine Aminotransferase 14 U/L (6-35); Albumin Level 4.3 g/dL (3.5-5.1); Alkaline Phosphatase 98 U/L (38-126); Anion Gap 7 mmol/L (4-12); Aspartate Amino Transferase 19 U/L (14-36); Bilirubin,Total 0.6 mg/dL (0.2-1.3); Blood Urea Nitrogen 12 mg/dL (7-17); Calcium 8.9 mg/dL (8.4-10.2); Carbon Dioxide 23 mmol/L (22-30); Chloride 104 mmol/L (98-107); Estimated Glomerular Filt Rate > 60; Glucose 194 mg/dL (65-110); Potassium 4.1 mmol/L (3.4-5.0); Sodium 134 mmol/L (137-145)
== END 2023-08-04 10:13 | disposition home or self-care (01) ==
LOC: ANHGOSHLAB 10:13
PROVIDERS: PCP Family Medicine; Visit Provider Family Medicine
DX: E11.9 Type 2 diabetes mellitus without complications (principal); Z13.228 Encounter for screening for other metabolic disorders
CPT/HCPCS: 36415; 80053

== ENCOUNTER 2024-05-23 08:51 | Observation (INO) | payer OTHER, SELFPAY ==
[2024-05-23] VITALS (13 sets, daily range): BP systolic 118–152; BP diastolic 67–99; PULSE 92–110; RESP 14–20; TEMP 36.6–36.7; O2SAT 99–100; BMI 22.7
--- NOTE | ~2024-05-23 | CT_ITS ---
EXAMINATION: CT facial bones w con DATE: 05/24/2024 08:55 INDICATION: Tooth abscess. TECHNIQUE: Computed tomography (CT) of the facial bones and maxillofacial region was performed with 7 5 mL Omnipaque 350 intravenous contrast. Automated exposure control and iterative reconstruction tech [employer] were employed. The dose-length product was 263.23 mGy-cm. COMPARISON: None. FINDINGS: There are 16 mm and 5 mm sialoliths in the left submandibular gland. There is mucosal thick ening in right maxillary sinus. The orbits are normal. The mastoid air cells are normal. There is a c arious lesion of tooth 21. Tooth 15 demonstrates a carious lesion with incomplete muslim. There are changes of the canal procedure at tooth 3 with periapical lucencies. IMPRESSION: 1. Carious lesion of tooth 21. 2. Carious lesion of tooth 15 with incomplete muslim. 3. Sialoliths in left submandibular gland. Reviewed, dictated and finalized at location [] DBIRTH EDUCATOR
--- OUTSIDE RECORDS SUMMARY | 2024-05-23 09:18 | XMS_ITS | Clinical Summary ---
Author Organization [facility] [place] [address] Address [address] [place] [id number] Care Team Providers Care Jewelry Racker Name Role Phone Higinio Ramey Primary Care Provider [phone] Allergies No known active allergies Medications buPROPion XL (WELLBUTRIN XL) 150 mg 24 hr tablet Take 1 tablet (150 mg total) by mouth every morning 06/14/2021 Active busPIRone (BUSPAR) 10 mg tablet TAKE 1.5 TABLETS BY MOUTH TWICE A DAY 06/02/2021 Active escitalopram (LEXAPRO) 20 mg tablet Take 1 tablet (20 mg total) by mouth daily 06/22/2021 Active lisinopriL (PRINIVIL,ZESTR IL) 5 mg tablet Take 1 tablet (5 mg total) by mouth daily 06/20/2021 Active metFORMIN (GLUCOPHAGE) 500 mg tablet Take 1 tablet (500 mg total) by mouth 2 (two) times a day 06/07/2021 Active Maggy 0.25-35 mg-mcg per tablet Take 1 tablet by mouth daily 05/05/2021 Active Active Problems No known active problems Social History Tobacco Use Types Packs/Day Years Used Date Smoking Tobacco: Never Smokeless Tobacco: Never Personal Safety Answer Date Recorded Getting School Help Needed Not on file 05/22 Comments Unknown Sex and Gender Information Value Date Recorded Sex Assigned at Not on file Legal Sex Female 4:52 PM CDT Gender Identity Not on file Sexual Orientation Not on file Obstetrics History Last Filed Vital Signs Vital Sign Reading Time Taken Comments Blood Pressure 112/78 11/26/2023 2:58 PM CDT Pulse 86 11/26/2023 2:58 PM CDT Temperature 36.4 C (97.6 F) 11/26/2023 2:58 PM CDT Respiratory Rate 20 11/26/2023 2:58 PM CDT Oxygen Saturation 100% 11/26/2023 2:58 PM CDT Inhaled Oxygen Concentration - - Weight 73 kg (161 lb) 11/26/2023 2:58 PM CDT Height 175.3 cm (5' 9) 11/26/2023 2:58 PM CDT Body Mass Index 23.78 11/26/2023 2:58 PM CDT Plan of Treatment Health Maintenance Due Date Last Done Comments Cervical Cancer Screening 1985 Depression Screening 1985 Hepatitis C Screening 1985 DTaP/Tdap/Td Vaccine (1 - Tdap) 1998 Varicella Vaccines (1 of 2 - 13+ 2-dose series) 01/18/2000 Hepatitis B Screening 2005 Regular Well Visit/Exam 18-64 2005 Influenza Vaccine (#1) 2023 HPV Vaccines Aged Out No longer eligi ble based on patient's age to complete this topic Pneumococcal vaccine <65 Aged Out No longer eligible based on patient's age to complete this topic Insurance [employer] Member Subscriber Plan / Payer (Ef fective 2020-Present) Name:Xiomara Larios Relation to Subscriber:Self Name:Xiomara Larios Payer ID:[id number] Group ID:Not on file Type:COMMERCIAL Address: [address] [place] [id number] [facility] Care Teams Jewelry Racker Relationship Specialty Start Date End Date Higinio Ramey DO [address] [facility] [facility] [address] [place] [address] [place] [id number] PCP - General Family Medicine 08/05/23
--- OUTSIDE RECORDS SUMMARY | 2024-05-23 09:18 | XMS_ITS | Referral Summary ---
Author Organization [facility] [address] Address [address] [place] [phone] Care Team Providers Care Lodging House Keeper Name Role Phone Higinio Ramey Primary Care Provider [phone] Allergies No known active allergies Medications buPROPion [...] on file Sexual Orientation Not on file Last Filed Vital Signs Vital Sign Reading [...] 11/26/2023 2:58 PM CDT Plan of Treatment Not on file Insurance [id number] [facility] Care Teams Lodging House Keeper Relationship Specialty Start Date End Date Higinio Ramey DO [facility] [address] [id number] PCP - General Family Medicine 08/05/23
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
--- OUTSIDE RECORDS SUMMARY | 2024-05-23 09:18 | XMS_ITS | Data Portability ---
Author Organization [facility] [place] Address [address] [place] [address] [address] Care Team Providers Care Superintendent Transportation Name Role Phone NYDIA MENCHACA Primary Care Provider LASHAE ACHARYA Primary Care Provider [phone] Assessment No assessment recorded. Plan of Treatment Reminders Order Date Submit Date Provider Last Modified By Organization Details Last Modified Time Details Appointments None recorded. Lab None recorded. Referral None recorded. Procedures None recorded. Surgeries laparoscopi c ovarian cystectomy (SURG) 2022 023 [facility], [address] [address], [place], [address], 3 17:16:25 Imaging US, pelvis 2022 023 [address], [address], [place], [address], 3 17:06:37 US, transvagina l 2022 [address], [address], [place], [address], 3 17:06:37 Medication Orders Xanax 0.5 mg tablet [address] [facility] [place], [address], 15:09:23 Patient TargetsNo targets recorded. Patient InstructionsNo instructions recorded. Reason for Referral None Reported. Results Created Date Observation Date Name Description Value Unit Range Abnormal Flag Note LastModifiedBy Organization Detail LastModifiedTime 05/13/1905/13/2022 US, pelvi s No observ ation record ed. [address], [place], [address], 05/13/2022 11:46:24 05/13/19 23 05/13/2022 US, trans vagin al No observ ation record ed. [address], [place], [address], 05/13/2022 11:46:16 05/13/1905/13/2022 US, pelvi s No observ ation record ed. [email or web address] [facility] [address], [place], [address], 05/14/2022 12:29:54 Result Notes None recorded. Problems Name Problem SNOMED Code Status Onset Date Resolution Date Notes Provider Name and Address Organization Details Recorded Time Miscarriag e [id number] Completed 202205/14/2022 Duy Darden MD [address], [place], [address], [facility] 13:00:47 Problem Notes None recorded. Procedures Surgical History Date Name Laterality Status Provider Name and Address Organization Details Recorded Time 06/11/19 LAPAROSCOPIC OVARIAN CYSTECTOMY (SURG) completed [facility] 06/24/2022 17:46:33 06/11/19 LAPAROSCOPIC OVARIAN CYSTECTOMY (SURG) completed [facility] 06/30/2022 11:03:16 Imaging Results Imaging Date Name Status LastModified by Organization Details LastModified Time 05/13/2022 US, pelvis completed [address], [place], [address], 05/13/2022 11:46:24 05/13/2022 US, transvaginal completed [email or web address] [facility] [address], [place], [address], 05/13/2022 11:46:16 05/13/2022 US, pelvis completed [email or web address] [facility] [address], [place], [address], 05/14/2022 12:29:54 Procedure Notes None recorded. Medical Equipment None Reported. Allergies No known drug allergies Medications Name Sig Start Date Stop Date Status Note LastModified by Organization Details LastModified Time amoxicillin 500 mg capsule TAKE 1 CAPSULE BY MOUTH EVERY 8 HOURS UNTIL GONE 05/12 completed Not Available Not Available Not Available metformin 500 mg tablet TAKE 2 TABLETS (1000 MG) BY MOUTH TWICE DAILY active Not Available Not Available No t Available fluconazole 150 mg tablet TAKE 1 TABLET BY MOUTH EVERY DAY FOR 3 DAYS 05/12 completed Not Available Not Available Not Available hydrocodone 5 mg-acetamin ophen 325 mg tablet TAKE 1 TABLET BY MOUTH EVERY 4 HOURS NEEDED FOR PAIN active Not Available Not Available No t Available meloxicam 15 mg tablet TAKE 1 TABLET BY MOUTH ONCE DAILY 05/12 completed Not Available Not Available Not Available terconazole 0.8 % vaginal cream Insert 1 applicato rful every day by vaginal route at bedtime for 3 days. 05/12 completed Not Available Not Available Not Available sulfamethox azole 800 mg-trimetho prim 160 mg tablet TAKE 1 TABLET BY MOUTH TWICE A DAY FOR 7 DAYS 05/12 completed Not Available Not Available Not Available nystatin-tr iamcinolone 100,000 unit/gram-0 .1 % topical ointment APPLY OINTMENT TOPICALLY TO AFFECTED AREA(S) TWICE DAILY FOR 7 DAYS. 05/12 completed Not Available Not Available Not Available alprazolam 0.5 mg tablet TAKE 1 TABLET BY MOUTH THREE TIMES DAILY active Not Available Not Available No t Available GaosouyiToAgilOne Ultra Test strips USE TO CHECK BLOOD SUGARS DAILY OR NEEDED active Not Available Not Available No t Available buspirone 10 mg tablet TAKE 1 & 1/2 (ONE & ONE-HALF) TABLETS BY MOUTH TWICE DAILY active Not Available Not Available No t Available lisinopril 5 mg tablet TAKE 1 TABLET BY MOUTH ONCE DAILY active Not Available Not Available No t Available ibuprofen 600 mg tablet TAKE 1 TABLET BY MOUTH THREE TIMES DAILY active Not Available Not Available No t Available norethindro ne (contracept cher) 0.35 mg tablet Take 1 tablet(s) every day by oral route. 05/12 completed Not Available Not Available Not Available ondansetron 4 mg disintegrat ing tablet TAKE 1 TABLET BY MOUTH EVERY 8 HOURS NEEDED FOR NAUSEA AND VOMITING active Not Available Not Available No t Available escitalopra m 20 mg tablet TAKE 1 TABLET BY MOUTH ONCE DAILY active Not Available Not Available No t Available Sprintec (28) 0.25 mg-35 mcg tablet TAKE 1 TABLET BY MOUTH ONCE DAILY 05/12 completed Not Available Not Available Not Available cyclobenzap rine 5 mg tablet TAKE 1 TABLET BY MOUTH ONCE DAILY 05/12 completed Not Available Not Available Not Available bupropion HCl XL 150 mg 24 hr tablet, extended release TAKE 1 TABLET BY MOUTH ONCE DAILY IN THE MORNING active Not Available Not Available No t Available Trulicity 1.5 mg/0.5 mL subcutaneou s pen injector INJECT 1.5 MG (0.5 ML) SUBCUTANE OUSLY WEEKLY ON SATURDAYS . active Not Available Not Available No t Available Trulicity 0.75 mg/0.5 mL subcutaneou s pen injector INJECT 0.75MG SUBCUTANE OUSLY ONCE WEEKLY FOR 4 WEEKS, THEN INCREASE TO 1.5MG ONCE WEEKLY 05/12 completed Not Available Not Available Not Available OneTouch Delica Plus Lancet 33 gauge USE TO CHECK BLOOD SUGARS DAILY OR NEEDED active Not Available Not Available No t Available Paxlovid 300 mg (150 mg x 2)-100 mg tablets in a dose pack TAKE 3 TABLETS TOGETHER (TWO 150 MG NIRMATREL VIR TABLETS AND ONE 100 MG RITONAVIR TABLET) BY MOUTH TWICE DAILY FOR 5 DAYS. 05/12 completed Not Available Not Available Not Available Vitals Date Recorded Body height Body mass index (BMI) Body weight Systolic blood pressure Diastolic blood pressure Provider Name and Address Organization Details Last Updated DateTime 05/14/2022 170.18 cm 30.5 kg/m2 24088.51 g 167 mm[Hg] 100 mm[Hg] [facility] 3 12:37:49 Date Recorded Body height Body mass index (BMI) Body weight Systolic blood pressure Diastolic blood pressure Provider Name and Address Organization Details Last Updated DateTime 06/02/2022 170.18 cm 30.7 kg/m2 21906.1 g 151 mm[Hg] 95 mm[Hg] [facility] 3 14:34:48 Date Recorded Body height Body mass index (BMI) Body weight Systolic blood pressure Diastolic blood pressure Provider Name and Address Organization Details Last Updated DateTime 06/18/2022 170.18 cm 30.7 kg/m2 70904.1 g 152 mm[Hg] 87 mm[Hg] [facility] 3 11:20:20 Social History Question Answer Notes LastModified by Organizat ion Details LastModified Time Tobacco Smoking Status Never Smoker [facility] 06/18/2022 11:06:14 Do You Have An Advance Directive? No Information n ot available 08/25/2021 What Is Your Level Of Alcohol Consumption? Occasional Information not available 08/25/2021 Are You Blind Or Do You Have Difficulty Seeing? No Information n ot available 08/25/2021 What Is Your Level Of Caffeine Consumption? Occasional Information not available 08/25/2021 How Much Tobacco Do You Chew? None Information not available 08/25/2021 In The 14 Days Before Symptom Onset, Have You Had Close Contact With A Laboratory-confirm ed COVID-19 While That Case Was Ill? No Information n ot available 08/25/2021 In The 14 Days Before Symptom Onset, Have You Had Close Contact With A Person Who Is Under Investigation For COVID-19 While That Person Was Ill? No Information not available 08/25/2021 Have You Been To An Area Known To Be High Risk For COVID-19? No Information not available 08/25/2021 Are You Deaf Or Do You Have Serious Difficulty Hearing? No Information not available 08/25/2021 What Type Of Diet Are You Following? CARBOHYDRATE Information n ot available 08/25/2021 What Is The Highest Grade Or Level Of School You Have Completed Or The Highest Degree You Have Received? 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 No Information not available 08/25/2021 Do You Use Your Seat Belt Or Car Seat Routinely? Yes Information not available 08/25/2021 Do You Have Smoke And Carbon Monoxide Detectors In Your Home? Yes Information not available 08/25/2021 How Much Tobacco Do You Smoke? No Information not available 08/25/2021 Do You Feel Stressed (tense, Restless, Nervous, Or Anxious, Or Unable To Sleep At Night)? [id number] Information not available 08/25/2021 Do You Use Any Illicit Or Recreational Drugs? No Information not available 08/25/2021 Do You Use Sunscreen Routinely? Yes Information not available 08/25/2021 Have You Used IV Drugs? No Information not available 08/25/2021 Sex: Unknown Functional Status Question Answer Note LastModified by Organizat ion Details LastModified Time Do you have difficulty walking or climbing stairs? No [email or web address] Information not available 06/18/2022 Are you able to walk? YESWOREST Information not available 08/25/2021 Are you able to care for yourself? Yes [email or web address] Information not available 06/18/2022 Do you have difficulty dressing or bathing? No [email or web address] Information not available 06/18/2022 What is your exercise level? Moderate Information not available 08/25/2021 Mental Status None recorded. Family History Nothing Reported. Medical History Condition Response Anxiety Disorder Y Diabetes Y Hypertension Y Psychiatric Illness Y Depression/ depression Y Gynecological History Statement/Question Response Abnormal Pap N Flow Moderate Date of LMP 05/05/2022 On BCP's at Conception? Y N Was last menstrual period normal N STIs/STDs N HPV Vaccine N Duration of Flow (days) 5 Current Control Method BCPs Frequency of Cycle (Q days) 28 Sexually Active? Y Menses Monthly Y Age of first menstrual cycle 14 Date of Last Pap Smear Sexual Problems? N Desired Control Method BCPs LMP Approximate N Obstetrics History GPAL:G 1 P 0 0 1 0 Type Value Spontaneous 1 Living 0 Total 1 Past Encounters Encounter ID Performer Location Encounter Start Date Encounter Closed Date Diagnosis/Indication Diagnosis SNOMED-CT Code Diagnosis ICD10 Code Diagnosis Note [id number] [facility] E[facility] [place] [address] [address] 08/25/2021 11:26:22 08/25/2021 14:20:27 Vaginitis 24703447 N76.0 Here for vulvar itching and irritation x 2 monthsRece ntly diagnosed with type 2 diabetes 1 year ago. Working on BS controlWe discussed the link between uncontroll ed BS and recurrent yeast infections . Vulvar care guidelines discussed in-depth.V aginitis panel sent.Will treat for yeast.Due for WWE, patient encouraged to schedule this Contracept ion care management 466613405 Z30.9 She has been on combined oral contracept lina through her PCP. Patient has HTN. I discussed risk of OCP use with HTN and the need to switch to a progestin only method. Discussed all control options in great detail. Pt would like to start POP. She is aware of the risks and benefits. She has contraindi cations to use of OCP or other estrogen containing hormonal therapy. Pt will start her new pills now. She is aware it is not effective for control the first month. She is also aware of the importance of taking at the same time every day. Encouraged use of condoms as the pill does not protect against STD's. Will return in 3 months for med check. Consent was read and signed. Pt verbalized understand ing. Hypertensive disorder 38 708971 I10 BP today 192/109, 166/96, and then 174/102. I discussed need to go to the ED for evaluation given this high of a BP. Discussed risk of BP including stroke, etc.She does not have any symptoms currently, no chest pains or SOB. Red flag symptoms discussed. I recommende d ED evaluation and then to f/u with her PCP on her HTN. Time spent in visit is a total of 40 mins with at least 50% of visit consisting of counseling and review of plan of care. [id number] [facility] E[facility] [place] [address] [address] 05/12/2022 12:09:48 05/12/2022 14:21:29 Gynecologic examination 20883009 Z01.419 Take Calcium with Vitamin D 1200mg daily if not receiving in daily diet. It is strongly advised to have an annual flu shot and up can obtain at most pharmacies . If you have not had a TDap shot in the last 10 years you should obtain one as well. Discussed with patient & provided with informatio n regarding Gardisil vaccine to prevent the 4 strains for HPV that cause cervical cancer if under age 26. Encourage safe sexual practices, to use condoms and limit partners if not already in a monogamous relationsh ip. Do monthly self breast exams. Have mammogram yearly or every other year depending on family history. BRCA testing is now available for patients with strong genetic history of female cancer. If interested contact the office. Engage in daily exercise of low impact aerobic exercise 45-60 minutes 4-5 times weekly. Avoid tobacco and illicit drugs as well as using moderation with alcohol intake less than 1-2 8 oz beverages daily. This lifestyle behavior pattern will lead to less health conditions and longer life span. If BMI greater than 25 weight watchers or dietary consult advised. Patient received above instructio ns, and questions have been answered. If you have any questions please call or respond to this email. Patient was made aware of the patient portal and may obtain a paper copy of today's plan if desired. WWEMedical hx : Diabetes, HTN, Depression /anxietyHx of SAB 05/05/22. Positive UPT 04/28/22, saw PCP and had bhcg of 29 - then started bleeding shortly after, she had bleeding for 1 week then had a repeat bhcg down to a non-pregna nt level at her PCP office. She is O- blood type per patient, she did not receive rhogam. She is currently having no vaginal bleeding. She denies any pelvic pain, vaginal bleeding, or any odors.She also states she went to ED with covid 3-4 months ago, had a CT scan at that time that showed a dermoid cyst on ovary that needed follow-upW e agreed to pelvic u/s for further evaluation No hx of abnormal paps per patient, unsure when last pap wasPap done todaySTI testing declinedIn creased anxiety/de pression symptoms. She is seeing a new psychiatri st soon, feels like current medication regimen is not controllin g symptoms. Has tried many different medication s in the past that have made symptoms worse. Denies ever having thoughts of harming herself or others. Encouraged her to meet with psychiatri st, counseling encouraged . ED precaution s discussed. She is considerin g TTC soon. We discussed possible MFM preconcept ion consult due to medical hx/ can discuss this further at pelvic u/s f/u appointmen t Time spent in visit is a total of 35 mins with at least 50% of visit consisting of counseling and review of plan of care. BP elevated. No symptoms. She has been logging BP at home and has been normal. Encouraged her to f/u with PCP for BP check and continue to log at home. ED precaution s discussed. 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 She has a dermoid cyst. We discussed treatment options. We agreed to treat surgically . The patient understand s the procedure. The procedure was described to the patient in great detail. the patient also understand s the risks. The risks were also explained in detail. She understand s that injuries May occur during surgery. She understand s these injuries can result in hospitaliz ation, more surgery, and severe illness. She understand s there is risk of hemorrhage and infection. Made a decision to perform surgery. Spent over 40 minutes with patient discussing dermoid, surgery, treatment, risk. More than 50% was counseling . [id number] Duy Darden MD [place] [address] [address] 06/02/2022 14:19:37 06/02/2022 15:23:01 Anxiety 412[address]10 F41.[address] atoma of ovary 787095110 D27.9 this patient is a 37-year-ol d female presents for preoperati ve care. She has a dermoid cyst. We agreed to perform laparoscop ic ovarian cystectomy . She understand s the risks, benefits, and alternativ es. She has completed the informed consent process and is ready to proceed. [id number] Duy Darden MD [place] [address] [address] 06/18/2022 11:06:10 06/18/2022 11:49:04 Postoperative care 308266018 Z48.89 this patient is a 37-year-ol d female presents for postoperat cher care. She is recovering normally from a resection of dermoid cyst from her right ovary. She has no complaints . Her incisions are clean dry and intact. She has no pain. She is well. She will follow-up for well-woman exam or any gynecologi c problems. Health Concerns Section Related Observation LastModified by Organization Detai ls LastModified Time None Recorded Concern Status LastModified by Organization Details LastModified Time None Recorded Advance Directives Directive N: Payers Encounter Date Sequence Insurance Name Policy Number Policy Giang Covered Member ID Giang Member ID Guarantor Name 05/13/2022 1 [facility] - DOS ON OR AFTER 20 (MEDICAID REPLACEMENT - HMO) [id number] Xiomara Larios [id number] Xiomarafariha Larios 05/14/2022 1 [facility] - DOS ON OR AFTER 20 (MEDICAID REPLACEMENT - HMO) [id number] Xiomara Larios [id number] Xiomara Maednieves 06/02/2022 1 [facility] - DOS ON OR AFTER 20 (MEDICAID REPLACEMENT - HMO) [id number] Xiomara Larios [id number] Xiomara Maearl 06/18/2022 1 [facility] - DOS ON OR AFTER 20 (MEDICAID REPLACEMENT - HMO) [id number] Xiomara Larios [id number] Xiomara Larios Notes Date Note Type Note Provider Name and Address Organization Details Recorded Time 05/14/2022 text/html this patient is a 37-year-old female who presents for ultrasound follow-up. She has a dermoid cyst. We discussed treatment options. We agreed to treat surgically. The patient understands the procedure. The procedure was described to the patient in great detail. the patient also understands the risks. The risks were also explained in detail. She understands that injuries May occur during surgery. She understands these injuries can result in hospitalization, more surgery, and severe illness. She understands there is risk of hemorrhage and infection. Duy Darden MD [address], [place], [address], [facility] 05/15/2022 00:07:43 06/02/2022 text/html This patient is a 37-year-old female with a dermoid cyst. We have agreed to perform a laparoscopic ovarian cystectomy. She understands risk. The patient understands the procedure. The procedure was described to the patient in great detail. the patient also understands the risks. The risks were also explained in detail. She understands that injuries May occur during surgery. She understands these injuries can result in hospitalization, more surgery, and severe illness. She understands there is risk of hemorrhage and infection. Duy Darden MD [address], [place], [address], [facility] 06/02/2022 15:22:15 06/18/2022 text/html this patient is a 37-year-old female presents for postoperative care. She is recovering normally from a resection of dermoid cyst from her right ovary. She has no complaints. Her incisions are clean dry and intact. She has no pain. She is well. She will follow-up for well-woman exam or any gynecologic problems. Duy Darden MD [address], [place], [address], [facility] 06/18/2022 11:47:46 OBGyn Episode Ob Episode Information Episode Created Date Number of Fetuses Patient Bloodtype Patient rh Status Prepregnancy Weight lbs Domestic Partner Domestic Partner Phone Father Name Locomotive Operator Helper Status 06/19/19 23 1 CLOSED Fetus Data First Name Last Name Admitted to NICU Weight (g) Sex Living Outcome Pediatric Complications Fetus ID Race Codes Race Delivery Type , Spontane ous [id number] Can Calculation Initial Can Date Initial Exam Date Initial Exam Provider Initial Ultrasound Date Last Menstrual Period Date Ultra Sound Weeks Gestation 0 Eighteen To Twenty Week Can Update Ultra Sound Date Fundal Height At Umbil Quickening Date Ultra Sound Latest Weeks Gestation Final Can Confirmed By Final Can Confirmed Date Final Can Date Ultra Sound Latest Days Gestation 0 0 Menstrual History Last Menstrual Date Menses Monthly On Bcp Conception Prior Menses Frequency Hcg Plus Date Menarche Onset Age Delivery Information Delivery Date Delivery Type Labor Anesthesia Weeks Gestation Incision Type Labor Labor Length Hrs Delivered By Post Complications Tubal Sterilization Discharge Date Comments 3 Discharge Information Feeding Method Contraceptive Method Maternal HG B and HCT Levels
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
--- NOTE | 2024-05-23 09:27 | ED.DENTAL ---
HPI - Dental/Oral General Chief complaint: Dental/Oral <NATALIA Talavera Last Filed: 05/23/24 17:26> Stated complaint: dental pain <NATALIA Talavera Last Filed: 05/23/24 17:26> Time Seen by Provider: 05/23/24 09:08 <NATALIA Talavera Last Filed: 05/23/24 17:26> Source: patient <NATALIA Talavera Last Filed: 05/23/24 17:26> Mode of arrival: ambulatory <NATALIA Talavera Last Filed: 05/23/24 17:26> Limitations: no limitations <NATALIA Talavera Last Filed: 05/23/24 17:26> History of Present Illness HPI Narrative: This is a 39 year old female that presents to the ER for toothache. Ongoing over the 5 days. Reports she has been having some nausea and vomiting. She was not able to get into her dentist. <Socorro Muñoz PA-C - Last Filed: 05/23/24 17:26> MD Complaint: tooth pain <NATALIA Talavera Last Filed: 05/23/24 17:26> Location: Tooth # (4) <NATALIA Talavera Last Filed: 05/23/24 17:26> Related Data Home medications: Home Medications ?Medication ?Instructions ?Recorded ?Confirmed ?Last Taken ?Type venlafaxine 75 mg capsule,extended 75 mg PO DAILY 02/01/23 03/01/24 Unknown History release 24 hr (Effexor XR) <NATALIA Talavera Last Filed: 05/23/24 17:26> Allergies/adverse reactions: Allergies Allergy/AdvReac Type Severity Reaction Status Date / Time No Known Allergies Allergy Verified 05/23/24 09:38 <NATALIA Talavera Last Filed: 05/23/24 17:26> Review of Systems Review of Systems: CONSTITUTIONAL: Denies fever ENT: Reports dentalgia GASTROINTESTINAL: Reports nausea, vomiting <NATALIA Talavera Last Filed: 05/23/24 17:26> All systems reviewed & are unremarkable except as noted in HPI and below <Socorro Muñoz PA-C - Last Filed: 05/23/24 17:26> [facility] Past Medical History Medical History: Medical History Hypertension Encounter for gynecological examination (general) (routine) without abnormal findings Encounter for preventative adult health care examination History of kidney stones Neutrophilic leukocytosis Pre-menstrual mood disorder Screening for cervical cancer Traumatic hematoma of right knee Type 2 diabetes mellitus without complications Elevated blood sugar ADHD Severe obesity (BMI >= 40) Anxiety disorder, unspecified <Socorro Muñoz PA-C - Last Filed: 05/23/24 17:26> Surgical History Surgical History: Surgical History H/O removal of cyst Removed from cyst 06/10/2022 No pertinent past surgical history <Socorro Muñoz PA-C - Last Filed: 05/23/24 17:26> Family History Family History: Family History Father Depression Anxiety Mother Anxiety Depression Sibling Anxiety Depression <Socorro Muñoz PA-C - Last Filed: 05/23/24 17:26> Social History Social History: Social History Smoking status: Never smoker Second hand tobacco smoke exposure: No Smoking end date: 03/22/14 Alcohol intake: former Substance use: never Do You Feel Safe in your Home?: Yes Lack of Transportation: No Lack of Food: Never True Current Housing: I Have Housing Concerned About Future Housing: No Difficulty Paying Gas/Electric Bills: No Difficulty Paying for Meds: No Currently Unemployed: No Education: High School Diploma/GED Difficulty w/ Childcare or Family Care: No Living arrangements: with family Occupation/Education: other 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 HEAD: Normocephalic, atraumatic. EYES: EOMI. ENT: Nares clear, no rhinorrhea or epistaxis. Mucous membranes moist. Oropharynx without tonsillar hypertrophy exudate or other lesions. Tooth #4 tender to palpation without surrounding erythema or edema to suggest abscess NECK: Supple. No adenopathy or masses. CHEST: No respiratory distress. HEART: Regular rate EXTREMITIES: Normal range of motion. No edema. SKIN: Warm, dry, no rash. NEURO: No focal deficits. Alert and oriented x3. PSYCH: Normal mood and affect <Socorro Muñoz PA-C - Last Filed: 05/23/24 17:26> Course Course Emergency Course: patient updated on her workup and recommendation for admission <Socorro Muñoz PA-C - Last Filed: 05/23/24 17:26> PROPERTY MANAGEMENT ACCOUNTANT/PA Physician Supervision I agree with midlevel documentation; I performed the medical decision making component of this evaluation. <Lo Flores MD - Last Filed: 05/23/24 17:44> Consultations Consultation #1: spoke with hospitalist about patient and workup who accepts admission <Socorro Muñoz PA-C - Last Filed: 05/23/24 17:26> Date: 05/23/24 <Socorro Muñoz PA-C - Last Filed: 05/23/24 17:26> Vital Signs Vital signs: Vital Signs Temperature 97.9 F 05/23/24 09:32 Pulse Rate 109 H 05/23/24 09:32 Respiratory Rate 16 05/23/24 09:32 Blood Pressure 138/88 05/23/24 09:32 Pulse Oximetry 100 05/23/24 09:32 Temperature 97.9 F 05/23/24 09:32 Pulse Rate 105 H 05/23/24 16:01 Respiratory Rate 15 05/23/24 16:01 Blood Pressure 120/74 05/23/24 16:01 Pulse Oximetry 100 05/23/24 16:01 <Socorro Muñoz PA-C - Last Filed: 05/23/24 17:26> Vital Signs Temperature 97.9 F 05/23/24 09:32 Pulse Rate 109 H 05/23/24 09:32 Respiratory Rate 16 05/23/24 09:32 Blood Pressure 138/88 05/23/24 09:32 Pulse Oximetry 100 05/23/24 09:32 Temperature 97.9 F 05/23/24 09:32 Pulse Rate 105 H 05/23/24 16:01 Respiratory Rate 15 05/23/24 16:01 Blood Pressure 120/74 05/23/24 16:01 Pulse Oximetry 100 05/23/24 16:01 <Lo Flores MD - Last Filed: 05/23/24 17:44> MDM - Dental/Oral MDM Narrative Medical decision making narrative: Patient presents emergency department for a dental infection. Mildly tachycardic, this improved with IV fluids. She is afebrile and nontoxic appearing. CBC with mild leukocytosis. No evidence for abscess on exam. CBC also shows hemoconcentration. Metabolic panel with evidence of dehydration. Bicarb of 12 and anion gap of 21. She does have 4+ ketones in her urine. I do feel this is more starvation ketosis, her blood sugars are normal. Patient will be admitted for further hydration. Spoke with hospitalist about patient and workup who accepts admission <Socorro Muñoz PA-C - Last Filed: 05/23/24 17:26> Differential Diagnosis Differential diagnosis: Likely toothache, dental abscess and other (DKA, starvation ketosis) <Socorro Muñoz PA-C - Last Filed: 05/23/24 17:26> Lab Data Attestation: I reviewed the patient's lab results. <Socorro Muñoz PA-C - Last Filed: 05/23/24 17:26> Result diagrams: 05/23/24 09:50 05/23/24 13:18 <Socorro Muñoz PA-C - Last Filed: 05/23/24 17:26> Labs: Lab Results 05/23/24 05/23/24 05/23/24 Range/Units 09:49 09:50 10:09 WBC 11.2 H (4.5-10.0) K/mm3 RBC 5.33 (4.2-5.4) M/mm3 Hgb 16.0 H (12.0-15.0) g/dL Hct 50.1 H (37.0-47.0) % MCV 94.0 (80-100) fl MCH 30.0 (26-34) pg MCHC 31.9 L (32-36) g/dl RDW 12.9 (11.5-14.5) % Plt Count 295 (150-375) k/mm3 MPV 10.7 H (7.4-10.4) fl Immature Gran % (Auto) 0.4 (0-0.5) % Neut % (Auto) 83.9 H (45.5-73.1) % Lymph % (Auto) 10.0 L (18.3-44.2) % [place] % (Auto) 5.0 (2.6-8.5) % Eos % (Auto) 0.3 (0-4.4) % Baso % (Auto) 0.4 (0.2-1.2) % Lymph # (Auto) 1.12 (0.9-3.2) K/mm3 [place] # (Auto) 0.6 (0.1-0.6) K/mm3 Eos # (Auto) 0.0 (0-0.3) K/mm3 Baso # (Auto) 0.1 (0.0-0.1) K/mm3 Abs Immat Gran (auto) 0.05 H (0.00-0.031) K/mm3 Absolute Neuts (auto) 9.4 H (1.3-6.7) K/mm3 Absolute Nucleated RBC 0.000 (0.0-0.012) K/mm3 Nucleated RBC % 0.0 (0.0-0.2) % Sodium 138 (137-145) mmol/L Potassium 4.7 (3.4-5.0) mmol/L Chloride 105 (98-107) mmol/L Carbon Dioxide 12 L (22-30) mmol/L Anion Gap 21 H (4-12) mmol/L BUN 14 (7-17) mg/dL Creatinine 0.66 L (0.7-1.0) mg/dL Estim Creat Clear Calc 97 ml/min Estimated GFR > 60 (59 - ) Glucose 106 (65-110) mg/dL Hemoglobin A1c Pending Calcium 9.2 (8.4-10.2) mg/dL Phosphorus 3.4 (2.5-4.5) mg/dL Magnesium (1.6-2.3) mg/dL Total Bilirubin (0.2-1.3) mg/dL AST (14-36) U/L ALT (6-35) U/L Alkaline Phosphatase (38-126) U/L Total Protein (6.3-8.2) g/dL Albumin (3.5-5.1) g/dL Beta-Hydroxybutyrate/Acetoacetate (0.02-0.27) mmol/L TSH (0.465-4.680) uIU/mL Urine Color Yellow (Yellow) Urine Appearance Clear (Clear) Urine pH 5.0 (5.0-9.0) Ur Specific [place] 1.033 (1.001-1.035) Urine Protein 1+ H (Negative) mg/dL Urine Glucose (UA) 3+ H (Negative) mg/dL Urine Ketones 4+ H (Negative) mg/dL Ur Blood (Man) 3+ H (Negative) Urine Nitrate Negative (Negative) Urine Bilirubin Negative (Negative) Urine Urobilinogen 0.2 (<2.0) mg/dL Leukocyte Esterase Rfl Negative (Negative) SARA/UL Urine RBC 51-100 H (0-2) /hpf Urine WBC 0-5 (0-3) /hpf Ur Squamous Epith Cells None seen (Few) /hpf Urine Bacteria None seen /hpf Urine Casts 3-5 POC Urine HCG, Qual Negative (Negative) Influenza A (RT-PCR) (Negative) Influenza B (RT-PCR) (Negative) SARS-CoV-2 RNA (RT-PCR) (Negative) 05/23/24 05/23/24 05/23/24 Range/Units 10:09 10:09 11:37 WBC (4.5-10.0) K/mm3 RBC (4.2-5.4) M/mm3 Hgb (12.0-15.0) g/dL Hct (37.0-47.0) % MCV (80-100) fl MCH (26-34) pg MCHC (32-36) g/dl RDW (11.5-14.5) % Plt Count (150-375) k/mm3 MPV (7.4-10.4) fl Immature Gran % (Auto) (0-0.5) % Neut % (Auto) (45.5-73.1) % Lymph % (Auto) (18.3-44.2) % [place] % (Auto) (2.6-8.5) % Eos % (Auto) (0-4.4) % Baso % (Auto) (0.2-1.2) % Lymph # (Auto) (0.9-3.2) K/mm3 [place] # (Auto) (0.1-0.6) K/mm3 Eos # (Auto) (0-0.3) K/mm3 Baso # (Auto) (0.0-0.1) K/mm3 Abs Immat Gran (auto) (0.00-0.031) K/mm3 Absolute Neuts (auto) (1.3-6.7) K/mm3 Absolute Nucleated RBC (0.0-0.012) K/mm3 Nucleated RBC % (0.0-0.2) % Sodium (137-145) mmol/L Potassium (3.4-5.0) mmol/L Chloride (98-107) mmol/L Carbon Dioxide (22-30) mmol/L Anion Gap (4-12) mmol/L BUN (7-17) mg/dL Creatinine (0.7-1.0) mg/dL Estim Creat Clear Calc ml/min Estimated GFR (59 - ) Glucose (65-110) mg/dL Hemoglobin A1c Calcium (8.4-10.2) mg/dL Phosphorus Cancelled (2.5-4.5) mg/dL Magnesium 1.8 Cancelled (1.6-2.3) mg/dL Total Bilirubin 0.7 (0.2-1.3) mg/dL AST 20 (14-36) U/L ALT 14 (6-35) U/L Alkaline Phosphatase 90 (38-126) U/L Total Protein 8.0 (6.3-8.2) g/dL Albumin 4.6 (3.5-5.1) g/dL Beta-Hydroxybutyrate/Acetoacetate 4.83 H (0.02-0.27) mmol/L TSH 0.654 (0.465-4.680) uIU/mL Urine Color (Yellow) Urine Appearance (Clear) Urine pH (5.0-9.0) Ur Specific [place] (1.001-1.035) Urine Protein (Negative) mg/dL Urine Glucose (UA) (Negative) mg/dL Urine Ketones (Negative) mg/dL Ur Blood (Man) (Negative) Urine Nitrate (Negative) Urine Bilirubin (Negative) Urine Urobilinogen (<2.0) mg/dL Leukocyte Esterase Rfl (Negative) SARA/UL Urine RBC (0-2) /hpf Urine WBC (0-3) /hpf Ur Squamous Epith Cells (Few) /hpf Urine Bacteria /hpf Urine Casts POC Urine HCG, Qual (Negative) Influenza A (RT-PCR) Negative (Negative) Influenza B (RT-PCR) Negative (Negative) SARS-CoV-2 RNA (RT-PCR) Negative (Negative) 05/23/24 Range/Units 13:18 WBC (4.5-10.0) K/mm3 RBC (4.2-5.4) M/mm3 Hgb (12.0-15.0) g/dL Hct (37.0-47.0) % MCV (80-100) fl MCH (26-34) pg MCHC (32-36) g/dl RDW (11.5-14.5) % Plt Count (150-375) k/mm3 MPV (7.4-10.4) fl Immature Gran % (Auto) (0-0.5) % Neut % (Auto) (45.5-73.1) % Lymph % (Auto) (18.3-44.2) % [place] % (Auto) (2.6-8.5) % Eos % (Auto) (0-4.4) % Baso % (Auto) (0.2-1.2) % Lymph # (Auto) (0.9-3.2) K/mm3 [place] # (Auto) (0.1-0.6) K/mm3 Eos # (Auto) (0-0.3) K/mm3 Baso # (Auto) (0.0-0.1) K/mm3 Abs Immat Gran (auto) (0.00-0.031) K/mm3 Absolute Neuts (auto) (1.3-6.7) K/mm3 Absolute Nucleated RBC (0.0-0.012) K/mm3 Nucleated RBC % (0.0-0.2) % Sodium 144 (137-145) mmol/L Potassium 4.1 (3.4-5.0) mmol/L Chloride 111 H (98-107) mmol/L Carbon Dioxide 9 L (22-30) mmol/L Anion Gap 24 H (4-12) mmol/L BUN 11 (7-17) mg/dL Creatinine 0.60 L (0.7-1.0) mg/dL Estim Creat Clear Calc 106 ml/min Estimated GFR > 60 (59 - ) Glucose 80 (65-110) mg/dL Hemoglobin A1c Calcium 8.7 (8.4-10.2) mg/dL Phosphorus (2.5-4.5) mg/dL Magnesium (1.6-2.3) mg/dL Total Bilirubin (0.2-1.3) mg/dL AST (14-36) U/L ALT (6-35) U/L Alkaline Phosphatase (38-126) U/L Total Protein (6.3-8.2) g/dL Albumin (3.5-5.1) g/dL Beta-Hydroxybutyrate/Acetoacetate (0.02-0.27) mmol/L TSH (0.465-4.680) uIU/mL Urine Color (Yellow) Urine Appearance (Clear) Urine pH (5.0-9.0) Ur Specific [place] (1.001-1.035) Urine Protein (Negative) mg/dL Urine Glucose (UA) (Negative) mg/dL Urine Ketones (Negative) mg/dL Ur Blood (Man) (Negative) Urine Nitrate (Negative) Urine Bilirubin (Negative) Urine Urobilinogen (<2.0) mg/dL Leukocyte Esterase Rfl (Negative) SARA/UL Urine RBC (0-2) /hpf Urine WBC (0-3) /hpf Ur Squamous Epith Cells (Few) /hpf Urine Bacteria /hpf Urine Casts POC Urine HCG, Qual (Negative) Influenza A (RT-PCR) (Negative) Influenza B (RT-PCR) (Negative) SARS-CoV-2 RNA (RT-PCR) (Negative) <Socorro Muñoz PA-C - Last Filed: 05/23/24 17:26> Lab Results 05/23/24 05/23/24 05/23/24 Range/Units 09:49 09:50 10:09 WBC 11.2 H (4.5-10.0) K/mm3 RBC 5.33 (4.2-5.4) M/mm3 Hgb 16.0 H (12.0-15.0) g/dL Hct 50.1 H (37.0-47.0) % MCV 94.0 (80-100) fl MCH 30.0 (26-34) pg MCHC 31.9 L (32-36) g/dl RDW 12.9 (11.5-14.5) % Plt Count 295 (150-375) k/mm3 MPV 10.7 H (7.4-10.4) fl Immature Gran % (Auto) 0.4 (0-0.5) % Neut % (Auto) 83.9 H (45.5-73.1) % Lymph % (Auto) 10.0 L (18.3-44.2) % [place] % (Auto) 5.0 (2.6-8.5) % Eos % (Auto) 0.3 (0-4.4) % Baso % (Auto) 0.4 (0.2-1.2) % Lymph # (Auto) 1.12 (0.9-3.2) K/mm3 [place] # (Auto) 0.6 (0.1-0.6) K/mm3 Eos # (Auto) 0.0 (0-0.3) K/mm3 Baso # (Auto) 0.1 (0.0-0.1) K/mm3 Abs Immat Gran (auto) 0.05 H (0.00-0.031) K/mm3 Absolute Neuts (auto) 9.4 H (1.3-6.7) K/mm3 Absolute Nucleated RBC 0.000 (0.0-0.012) K/mm3 Nucleated RBC % 0.0 (0.0-0.2) % Sodium 138 (137-145) mmol/L Potassium 4.7 (3.4-5.0) mmol/L Chloride 105 (98-107) mmol/L Carbon Dioxide 12 L (22-30) mmol/L Anion Gap 21 H (4-12) mmol/L BUN 14 (7-17) mg/dL Creatinine 0.66 L (0.7-1.0) mg/dL Estim Creat Clear Calc 97 ml/min Estimated GFR > 60 (59 - ) Glucose 106 (65-110) mg/dL Hemoglobin A1c Pending Calcium 9.2 (8.4-10.2) mg/dL Phosphorus 3.4 (2.5-4.5) mg/dL Magnesium (1.6-2.3) mg/dL Total Bilirubin (0.2-1.3) mg/dL AST (14-36) U/L ALT (6-35) U/L Alkaline Phosphatase (38-126) U/L Total Protein (6.3-8.2) g/dL Albumin (3.5-5.1) g/dL Beta-Hydroxybutyrate/Acetoacetate (0.02-0.27) mmol/L TSH (0.465-4.680) uIU/mL Urine Color Yellow (Yellow) Urine Appearance Clear (Clear) Urine pH 5.0 (5.0-9.0) Ur Specific [place] 1.033 (1.001-1.035) Urine Protein 1+ H (Negative) mg/dL Urine Glucose (UA) 3+ H (Negative) mg/dL Urine Ketones 4+ H (Negative) mg/dL Ur Blood (Man) 3+ H (Negative) Urine Nitrate Negative (Negative) Urine Bilirubin Negative (Negative) Urine Urobilinogen 0.2 (<2.0) mg/dL Leukocyte Esterase Rfl Negative (Negative) SARA/UL Urine RBC 51-100 H (0-2) /hpf Urine WBC 0-5 (0-3) /hpf Ur Squamous Epith Cells None seen (Few) /hpf Urine Bacteria None seen /hpf Urine Casts 3-5 POC Urine HCG, Qual Negative (Negative) Influenza A (RT-PCR) (Negative) Influenza B (RT-PCR) (Negative) SARS-CoV-2 RNA (RT-PCR) (Negative) 05/23/24 05/23/24 05/23/24 Range/Units 10:09 10:09 11:37 WBC (4.5-10.0) K/mm3 RBC (4.2-5.4) M/mm3 Hgb (12.0-15.0) g/dL Hct (37.0-47.0) % MCV (80-100) fl MCH (26-34) pg MCHC (32-36) g/dl RDW (11.5-14.5) % Plt Count (150-375) k/mm3 MPV (7.4-10.4) fl Immature Gran % (Auto) (0-0.5) % Neut % (Auto) (45.5-73.1) % Lymph % (Auto) (18.3-44.2) % [place] % (Auto) (2.6-8.5) % Eos % (Auto) (0-4.4) % Baso % (Auto) (0.2-1.2) % Lymph # (Auto) (0.9-3.2) K/mm3 [place] # (Auto) (0.1-0.6) K/mm3 Eos # (Auto) (0-0.3) K/mm3 Baso # (Auto) (0.0-0.1) K/mm3 Abs Immat Gran (auto) (0.00-0.031) K/mm3 Absolute Neuts (auto) (1.3-6.7) K/mm3 Absolute Nucleated RBC (0.0-0.012) K/mm3 Nucleated RBC % (0.0-0.2) % Sodium (137-145) mmol/L Potassium (3.4-5.0) mmol/L Chloride (98-107) mmol/L Carbon Dioxide (22-30) mmol/L Anion Gap (4-12) mmol/L BUN (7-17) mg/dL Creatinine (0.7-1.0) mg/dL Estim Creat Clear Calc ml/min Estimated GFR (59 - ) Glucose (65-110) mg/dL Hemoglobin A1c Calcium (8.4-10.2) mg/dL Phosphorus Cancelled (2.5-4.5) mg/dL Magnesium 1.8 Cancelled (1.6-2.3) mg/dL Total Bilirubin 0.7 (0.2-1.3) mg/dL AST 20 (14-36) U/L ALT 14 (6-35) U/L Alkaline Phosphatase 90 (38-126) U/L Total Protein 8.0 (6.3-8.2) g/dL Albumin 4.6 (3.5-5.1) g/dL Beta-Hydroxybutyrate/Acetoacetate 4.83 H (0.02-0.27) mmol/L TSH 0.654 (0.465-4.680) uIU/mL Urine Color (Yellow) Urine Appearance (Clear) Urine pH (5.0-9.0) Ur Specific [place] (1.001-1.035) Urine Protein (Negative) mg/dL Urine Glucose (UA) (Negative) mg/dL Urine Ketones (Negative) mg/dL Ur Blood (Man) (Negative) Urine Nitrate (Negative) Urine Bilirubin (Negative) Urine Urobilinogen (<2.0) mg/dL Leukocyte Esterase Rfl (Negative) SARA/UL Urine RBC (0-2) /hpf Urine WBC (0-3) /hpf Ur Squamous Epith Cells (Few) /hpf Urine Bacteria /hpf Urine Casts POC Urine HCG, Qual (Negative) Influenza A (RT-PCR) Negative (Negative) Influenza B (RT-PCR) Negative (Negative) SARS-CoV-2 RNA (RT-PCR) Negative (Negative) 05/23/24 Range/Units 13:18 WBC (4.5-10.0) K/mm3 RBC (4.2-5.4) M/mm3 Hgb (12.0-15.0) g/dL Hct (37.0-47.0) % MCV (80-100) fl MCH (26-34) pg MCHC (32-36) g/dl RDW (11.5-14.5) % Plt Count (150-375) k/mm3 MPV (7.4-10.4) fl Immature Gran % (Auto) (0-0.5) % Neut % (Auto) (45.5-73.1) % Lymph % (Auto) (18.3-44.2) % [place] % (Auto) (2.6-8.5) % Eos % (Auto) (0-4.4) % Baso % (Auto) (0.2-1.2) % Lymph # (Auto) (0.9-3.2) K/mm3 [place] # (Auto) (0.1-0.6) K/mm3 Eos # (Auto) (0-0.3) K/mm3 Baso # (Auto) (0.0-0.1) K/mm3 Abs Immat Gran (auto) (0.00-0.031) K/mm3 Absolute Neuts (auto) (1.3-6.7) K/mm3 Absolute Nucleated RBC (0.0-0.012) K/mm3 Nucleated RBC % (0.0-0.2) % Sodium 144 (137-145) mmol/L Potassium 4.1 (3.4-5.0) mmol/L Chloride 111 H (98-107) mmol/L Carbon Dioxide 9 L (22-30) mmol/L Anion Gap 24 H (4-12) mmol/L BUN 11 (7-17) mg/dL Creatinine 0.60 L (0.7-1.0) mg/dL Estim Creat Clear Calc 106 ml/min Estimated GFR > 60 (59 - ) Glucose 80 (65-110) mg/dL Hemoglobin A1c Calcium 8.7 (8.4-10.2) mg/dL Phosphorus (2.5-4.5) mg/dL Magnesium (1.6-2.3) mg/dL Total Bilirubin (0.2-1.3) mg/dL AST (14-36) U/L ALT (6-35) U/L Alkaline Phosphatase (38-126) U/L Total Protein (6.3-8.2) g/dL Albumin (3.5-5.1) g/dL Beta-Hydroxybutyrate/Acetoacetate (0.02-0.27) mmol/L TSH (0.465-4.680) uIU/mL Urine Color (Yellow) Urine Appearance (Clear) Urine pH (5.0-9.0) Ur Specific [place] (1.001-1.035) Urine Protein (Negative) mg/dL Urine Glucose (UA) (Negative) mg/dL Urine Ketones (Negative) mg/dL Ur Blood (Man) (Negative) Urine Nitrate (Negative) Urine Bilirubin (Negative) Urine Urobilinogen (<2.0) mg/dL Leukocyte Esterase Rfl (Negative) SARA/UL Urine RBC (0-2) /hpf Urine WBC (0-3) /hpf Ur Squamous Epith Cells (Few) /hpf Urine Bacteria /hpf Urine Casts POC Urine HCG, Qual (Negative) Influenza A (RT-PCR) (Negative) Influenza B (RT-PCR) (Negative) SARS-CoV-2 RNA (RT-PCR) (Negative) <Lo Flores MD - Last Filed: 05/23/24 17:44> Critical Care Time Critical Care Time Critical Care Time: No <Socorro Muñoz PA-C - Last Filed: 05/23/24 17:26> Discharge Plan Discharge Clinical Impression: Toothache, Acute dehydration <Socorro Muñoz PA-C - Last Filed: 05/23/24 17:26> Patient Disposition: Still a Patient <Socorro Muñoz PA-C - Last Filed: 05/23/24 17:26> Condition: Stable <Socorro Muñoz PA-C - Last Filed: 05/23/24 17:26>
[2024-05-23] MEDS: SODIUM CHLORIDE 0.9% IV 1,000 ML 999 ML IV CONT ×2 (09:47→11:39)
[2024-05-23] MEDS: METOCLOPRAMIDE HCL INJ 10 MG/2 ML VIAL IV PUSH (09:47)
[2024-05-23 09:50] LABS: BEDSIDEPREGUCG Negative (Negative)
--- OUTSIDE RECORDS SUMMARY | 2024-05-23 09:54 | XMS_ITS ---
Author Organization [facility] Address [address] [place] [address] Care Team Providers Care Draw Machine Operator Name Role Phone Socorro Elizalde Primary Care Provider [phone] Arpan Seth Unavailable [phone] Allergies No Known Allergies REASON FOR VISIT 1 Month Psych F/U & Med Refill Medications Medication SIG (Take, Route, Frequency, Duration) Notes Start Date End Date Status ALPRAZolam 0.5 MG 1 tablet Orally Twic e a day as needed for 14 days Active Trulicity 1.5 MG/0.5ML as directed Subcu taneous weekly Not-Taking Effexor XR 75 MG 1 capsule with food Orally Once a day for 30 days Active busPIRone HCl 15 MG 1 tablet Orally Twic e a day for 30 days Active metFORMIN HCl 1000 MG 1 tablet with a me al Orally Once a day Active Ozempic Active Metoprolol Succinate Active Jardiance Active Social History Tobacco Use: Social History Observation Description Date Details (start date - stop date) Former Smoker NA - NA Tobacco Control (Standard) Question Answer Notes Tobacco use: Former smoker Encounters Encounter Location Date Provider Diagnosis [facility] [address], [place] [address] 02/23/2024 Arpan Seth Panic disorder F41.0 ; Major depressive disorder F32.9 and Generalized anxiety disorder F41.1 Assessments Encounter Date Diagnosis (ICD Code) Assessment Notes Treatment Notes Treatment Clinical Notes Section Notes 02/23/2024 Panic disorder (ICD-10 - F41.0) 02/23/2024 Major depressive disorder (ICD-10 - F32.9) 02/23/2024 Generalized anxiety disorder (ICD-10 - F41.1) [...] out of therapy with Patrica Duarte at [facility] in [place]. Today's visit: Patient is a 38-year-old female who presents for a psychiatric follow-up, is currently located in the [facility] and is being seen over the [...] or be administered own oral medications per [facility] protocols. Provided informed consent with understanding of side effects, adverse effects, risks and benefits as well as alternative treatments as previously discussed and with the above recommended medications & other aspects of the treatment program. Agrees to return sooner if symptoms worsen or suicidal or homicidal ideations occur. Plan Of Treatment Medication Medication Name Sig Start Date Stop Date Notes ALPRAZolam 0.5 MG 1 tablet Orally Twic e a day as needed for 14 days Effexor XR 75 MG 1 capsule with food Orally Once a day for 30 days busPIRone HCl 15 MG 1 tablet Orally Twic e a day for 30 days Treatment Notes Assessment Notes Generalized anxiety [...] out of therapy with Patrica Duarte at [facility] in [place]. Today's visit: Patient is a 38-year-old female who presents for a psychiatric follow-up, is currently located in the [facility] and is being seen over the [...] or be administered own oral medications per [facility] protocols. Provided informed consent with understanding of side effects, adverse effects, risks and benefits as well as alternative treatments as previously discussed and with the above recommended medications & other aspects of the treatment program. Agrees to return sooner if symptoms worsen or suicidal or homicidal ideations occur. Next Appt Details Follow Up: 4 months or PRN, Reason: med f/u Progress Notes * Xiomara MUKHERJEEDOB:[birth year] (39 yo F)Acc No.[id number]:02/23/2024 Patient: Xiomara CHAVIS Patience Provider: CARON Freitas :1985 A ge:39 Y S ex:Female Date:02/23/2024 Address:[address] [place], [place] [id number] Pcp:Socorro Elizalde Subjective: * Chief Complaints: * 1 Month Psych F/U & Med Refill * HPI: I nterim History: Emergency room visit N o. Was hospitalized N o. P sych F/U: Changes since last visit?: T pee havebeen really good. Still happy with medications and they are doing well. Statesnot having any more weird dreams and not sure what causing them. Denies any depression.Anxiety is good. States went with her [id number] to buddhist and got up onstage and participated, I just went for it? jacklyn and dedra and Robert. States considering going to buddhist more often but feels like she is a private person. Sleeping 8-9 hours a night still. Still going to the gym. In 2 021 was diagnosed with diabetes and was 256 lbs and at [facility] doctor's appt recently she weighed in at 156 l bs which she is really happy about, taking Ozempic which has been helpful.. Diabetes scared her and motivated her to lose weight. Denies any SI/HI. . D epression Screening: PHQ-9 L ittle interest or pleasure in doing things?Not at all F eeling down, depressed, or hopeless N ot at all T rouble falling or staying asleep, or sleeping too much N ot at all F eeling tired or having little energy N ot at all P oor appetite or overeating N ot [...] N ot at all T otal Score 0 S creening: [place] Suicide Severity Rating Scale (LF) D o [...] E mployment Status: U nemployed Tobacco Use - do not use T obacco Use: S tatus Reviewed with Patient Non-smoker T obacco Use Status Reviewed on: 04/06/2022 T obacco Use: T obacco Control (Standard) T obacco use: F ormer smoker M iscellaneous: M ethod of learning P referred method of learning: R eading * Medications: T akingOzempic Metoprolol Succinate Jardiance metFORMIN HCl 1000 MG Tablet 1 tablet with a meal Orally Once a day ALPRAZolam 0.5 MG Tablet 1 tablet Orally Twice a day as needed Effexor XR 75 MG Capsule Extended Release 24 Hour 1 capsule with food Orally Once a day busPIRone HCl 15 MG Tablet 1 tablet Orally Twice a day Taking Ozempic Taking Metoprolol Succinate Taking Jardiance Taking metFORMIN HCl 1000 MG Tablet 1 tablet with a meal Orally Once a day Taking ALPRAZolam 0.5 MG Tablet 1 tablet Orally Twice a day as needed Taking Effexor XR 75 MG Capsule Extended Release 24 Hour 1 capsule with food Orally Once a day Taking busPIRone HCl 15 MG Tablet 1 tablet Orally Twice a day Not-TakingTrulicity 1.5 MG/0.5ML Solution Pen-injector [...] who is 9 years old, no otherchildren. Graduated out of therapy with Patrica Duarte at [facility] in [place]. Today'svisit:Patient is a 38-year-old female who presents for a psychiatric follow-up, is currently located in the [facility] and is being seen over the phone. Previously seenon 11/24/2023 andduring this appt was continued on Effexor, Alprazolam 0.5 mg and Buspar 15 mgBID.Previous PHQ-9 score of2, today is0. Reports feeling stable in anxiety/panic and depressive sx on her current doses of medications and wishes to continue taking as prescribed. She has had the need to utilize Xanax, has some at home still. Will continue this medication and fill as needed/warranted.No acute safety concerns at the time of [...] occur. * Procedure Codes: * Follow Up: 4 months or PRN (Reason: med f/u) * * RONI PRESS OPERATOR Sign off status: Completed true * [facility]: 04/25/2023 Generated for Iliana alonso/Justina/Nettie on: 0 05/23/2024 09:54 AM MACARONI PRESS OPERATOR History and Physical Notes * HPI (History [...] all Feeling tired or having little energy: N ot at all Poor appetite or overeating: Not at all [...] some way: Not at all Total Score: 0 Psych F/U Changes since last visit?: Things have been really good. Still happy with medications and they are doing well. States not having any more weird dreams and not sure what causing them. Denies any depression. Anxiety is good. States went with her [id number] to buddhist and got up on stage and participated, I just went for it robert and Jake william. States considering going to buddhist more often but feels like she is a private person. Sleeping 8-9 hours a night still. Still going to the gym. In 2020 was diagnosed with diabetes and was 256 lbs and at her latest doctor's appt recently she weighed in at 156 lbs which she is really happy about, taking Ozempic which has been helpful.. Diabetes scared her and motivated her to lose weight. Denies any SI/HI. Screening [place] Suicide Sev erity Rating Scale (LF) Do [...]
--- OUTSIDE RECORDS SUMMARY | 2024-05-23 09:54 | XMS_ITS | Clinical Summary ---
Author Organization [facility] [address] Address [address] [place] [id number] Care Team Providers Care Deburrer Machine Name Role Phone Higinio Ramey Primary Care Provider [phone] Allergies No known active allergies Medications buPROPion [...] patient's age to complete this topic Insurance [facility] [facility] Care Teams Deburrer Machine Relationship Specialty Start Date End Date Higinio Ramey DO [address] [place] [address] [place] [id number] PCP - General Family Medicine 08/05/23
--- OUTSIDE RECORDS SUMMARY | 2024-05-23 09:54 | XMS_ITS | Referral Summary ---
Author Organization [facility] [address] Address [address] [place] [id number] Care Team Providers Care Data Management Manager Name Role Phone Higinio Ramey Primary Care Provider [phone] Allergies No known active allergies Medications buPROPion [...] Plan of Treatment Not on file Insurance [id number] [facility] Care Teams Data Management Manager Relationship Specialty Start Date End Date Higinio Ramey DO [facility] [address] [address] PCP - General Family Medicine 08/05/23
[2024-05-23 09:58] LABS: Basophils Absolute Auto 0.1 K/mm3 (0.0-0.1); Basophils Percent Auto 0.4 % (0.2-1.2); Eosinophils Percent Auto 0.3 % (0-4.4); Hematocrit 50.1 % (37.0-47.0); Immature Granulocyte Absolute 0.05 K/mm3 (0.00-0.031); Immature Granulocyte Percent A 0.4 % (0-0.5); Lymphocytes Absolute Auto 1.12 K/mm3 (0.9-3.2); Mean Corpuscular HGB Conc 31.9 g/dl (32-36); Mean Platelet Volume 10.7 fl (7.4-10.4); Monocytes Absolute Auto 0.6 K/mm3 (0.1-0.6); Neutrophils Absolute Auto 9.4 K/mm3 (1.3-6.7); Neutrophils Percent Auto 83.9 % (45.5-73.1); Platelet Count Result 295 k/mm3 (150-375); Red Blood Count 5.33 M/mm3 (4.2-5.4); Red Cell Distribution Width 12.9 % (11.5-14.5); White Blood Count 11.2 K/mm3 (4.5-10.0)
[2024-05-23 10:05] LABS: Add Urine Microscopic? YES; Appearance Urine Clear (Clear); Bacteria Urine None Seen /hpf; Bilirubin Urine Negative (Negative); Blood Urine 3+ (Negative); Color Urine Yellow (Yellow); Glucose Urine UA 3+ mg/dL (Negative); Ketones Urine 4+ mg/dL (Negative); Leukocyte Esterase Ur Negative LEU/UL (Negative); Nitrate Urine Negative (Negative); Protein Urine 1+ mg/dL (Negative); RBC Urine 51-100 /hpf (0-2); Specific Grav Ur 1.033 (1.001-1.035); Squamous Epithelial Cell Urine None Seen /hpf (Few); Urobilinogen Urine 0.2 mg/dL (<2.0); WBC Urine 0-5 /hpf (0-3)
[2024-05-23 10:36] LABS: Alanine Aminotransferase 14 U/L (6-35); Albumin Level 4.6 g/dL (3.5-5.1); Alkaline Phosphatase 90 U/L (38-126); Anion Gap 21 mmol/L (4-12); Aspartate Amino Transferase 20 U/L (14-36); Bilirubin,Total 0.7 mg/dL (0.2-1.3); Blood Urea Nitrogen 14 mg/dL (7-17); Calcium 9.2 mg/dL (8.4-10.2); Carbon Dioxide 12 mmol/L (22-30); Chloride 105 mmol/L (98-107); Estimated CRCL calculation 97 ml/min; Estimated Glomerular Filt Rate > 60; Glucose 106 mg/dL (65-110); Potassium 4.7 mmol/L (3.4-5.0); Sodium 138 mmol/L (137-145)
[2024-05-23 11:08] LABS: Magnesium 1.8 mg/dL (1.6-2.3); Phosphorus 3.4 mg/dL (2.5-4.5)
[2024-05-23] MEDS: KETOROLAC 15 MG/ML VIAL (*BKC) IV PUSH (11:39)
--- NOTE | 2024-05-23 11:45 | PC.NURSE ---
this RN entered pt room to give fluids and pain medication. pt immediately elevated her voice and said I've asked for water three times now in the last 30 minutes this RN educated the pt that she is here for nausea and vomiting and cannot have water, pt said she hasn't had any nausea or vomiting since the IV Reglan was given, pt started getting tearful saying she hasn't ate in 5 days and really wanted some water. this RN gave her water and instructed to take small sips and if she started getting nauseated then to stop drinking the water
[2024-05-23 12:17] LABS: Influenza A QL RT-PCR Negative (Negative); Influenza B QL RT-PCR Negative (Negative); SARS-CoV-2 RNA PCR Negative (Negative)
[2024-05-23 12:29] LABS: Beta-Hydroxybutyrate/Acetoace. 4.83 mmol/L (0.02-0.27)
[2024-05-23] MEDS: LACTATED RINGERS 1,000 ML 999 ML IV CONT (12:42)
[2024-05-23 13:39] LABS: Anion Gap 24 mmol/L (4-12); Blood Urea Nitrogen 11 mg/dL (7-17); Calcium 8.7 mg/dL (8.4-10.2); Carbon Dioxide 9 mmol/L (22-30); Chloride 111 mmol/L (98-107); Estimated CRCL calculation 106 ml/min; Estimated Glomerular Filt Rate > 60; Glucose 80 mg/dL (65-110); Potassium 4.1 mmol/L (3.4-5.0); Sodium 144 mmol/L (137-145)
--- NOTE | 2024-05-23 14:42 | P.HP_ITS ---
H&P: HPI History of Present Illness Date/Time: 05/23/24 14:42 Chief Complaint: Dental abscess Nausea/vomiting Narrative: This is a 39-year-old female with a significant past medical history of hypertension, type 2 diabetes mellitus, ADHD, anxiety who presented to the hospital with reports of nausea, vomiting, dental abscess. patient states that the pain started on of last week and she was having trouble getting in with her dentist. When she tried to get in this week with her dentist the dentist had a medical emergency and was not going to be and all week. She states that this tooth is a crown tooth with a root canal. She rates her pain 10/10 and is tearful in the room. She denies any fever, chills, nausea, vomiting, diarrhea, abdominal pain, chest pain, shortness a breath. She states she is not able to eat without it causing her incredible pain. Workup in the hospital included labs which showed a white blood cell count of 11.2, bicarb 12, anion gap 21, creatinine 0.6 beta hydroxybutyrate 4.83. UA showed 1+ urine protein, 3+ urine glucose, 4+ urine ketones, 3+ urine blood, 51-100 urine RBC. test was negative. Respiratory panel was negative for influenza a and B, COVID. Patient was given 2 L IV fluids, Reglan, and started on Unasyn while in the ED. Review of Systems Review of Systems: All systems reviewed & are unremarkable except as noted in HPI and below PMFSH Past Medical History Medical History Hypertension Encounter for gynecological examination (general) (routine) without abnormal findings Encounter for preventative adult health care examination History of kidney stones Neutrophilic leukocytosis Pre-menstrual mood disorder Screening for cervical cancer Traumatic hematoma of right knee Type 2 diabetes mellitus without complications Elevated blood sugar ADHD Severe obesity (BMI >= 40) Anxiety disorder, unspecified Surgical History Surgical History H/O removal of cyst Removed from cyst 06/10/2022 No pertinent past surgical history Family History Family History Father Depression Anxiety Mother Anxiety Depression Sibling Anxiety Depression Social History Social History Smoking status: Current every day smoker Tobacco type: cigarettes Second hand tobacco smoke exposure: No Alcohol intake: former Substance use: never Do You Feel Safe in your Home?: Yes Lack of Transportation: No Lack of Food: Never True Current Housing: I Have Housing Concerned About Future Housing: No Difficulty Paying Gas/Electric Bills: No Difficulty Paying for Meds: No Currently Unemployed: No Education: High School Diploma/GED Difficulty w/ Childcare or Family Care: No Living arrangements: with family Occupation/Education: other 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 Gender identity (if verbalized by the patient): Female Spiritual care concerns: No Meds Home Medications and Allergies Home Medications ?Medication ?Instructions ?Recorded ?Confirmed ?Type blood-glucose meter (Blood Glucose #1 ea 05/20/20 03/01/24 Rx Monitoring kit) blood sugar diagnostic (OneTouch #100 ea 05/21/20 03/01/24 Rx Ultra Blue Test Strip) lancets (OneTouch UltraSoft #100 ea 05/21/20 03/01/24 Rx Lancets) buspirone 10 mg tablet 15 mg (1.5 x 10 mg) PO BID #90 tabs 12/16/22 03/01/24 Rx venlafaxine 75 mg capsule,extended 75 mg PO DAILY 02/01/23 03/01/24 History release 24 hr (Effexor XR) metformin 500 mg tablet 1,000 mg (2 x 500 mg) PO BID #360 12/03/23 03/01/24 Rx tabs semaglutide 2 mg/dose (8 mg/3 mL) 2 mg (0.75 mL) subcut WEEKLY #3 mL 01/17/24 03/01/24 Rx subcutaneous pen injector metoprolol tartrate 25 mg tablet See Rx Instructions .Route 02/25/24 03/01/24 Rx .COMPLEX #60 tabs empagliflozin 10 mg tablet 10 mg PO DAILY #30 tabs 04/04/24 Rx Allergies Allergy/AdvReac Type Severity Reaction Status Date / Time No Known Allergies Allergy Verified 05/23/24 09:38 Vital Signs Vital Signs - 24 hr 05/23/24 09:32 05/23/24 10:22 05/23/24 10:31 Temperature 97.9 F Pulse Rate 109 H 92 Respiratory Rate 16 15 Blood Pressure 138/88 118/67 128/70 Pulse Oximetry 100 99 100 05/23/24 11:01 05/23/24 11:38 05/23/24 11:44 Temperature Pulse Rate 110 H Respiratory Rate 20 Blood Pressure 126/83 152/99 H 152/99 H Pulse Oximetry 100 100 100 05/23/24 12:43 05/23/24 13:40 Temperature Pulse Rate 100 103 H Respiratory Rate 15 20 Blood Pressure 135/94 H 130/78 Pulse Oximetry 100 100 Exam Narrative: General: Tearful, appears to be in acute pain,well nourished Head: atraumatic, no encephalopathy Eyes: PERRLA, sclera clear ENT: moist mucous membranes, nasal passages clear, mild swelling around right upper crown Neck: supple, no JVD, no adenopathy, trachea midline Cardiac: Normal S1 and S2. sinus tach, No murmur, gallops or friction rubs, peripheral pulses intact. Respiratory: Lungs clear to auscultation, no adventitious lung sounds, currently on room air Gastrointestinal: soft, non-distended, non-tender, normoactive bowel sounds. : voiding without difficulty. Extremities: moves all extremities well, no edema Skin: clean, dry, intact. No wounds or lesions. Neuro: Alert and oriented x4, cranial nerves intact, no neuro deficits. Psych: very tearful H&P: Results Labs Labs: Short CBC 05/23/24 Range/Units 09:50 WBC 11.2 H (4.5-10.0) K/mm3 Hgb 16.0 H (12.0-15.0) g/dL Hct 50.1 H (37.0-47.0) % Plt Count 295 (150-375) k/mm3 BMP 05/23/24 05/23/24 10:09 13:18 Sodium 138 144 Potassium 4.7 4.1 Chloride 105 111 H Carbon Dioxide 12 L 9 L BUN 14 11 Creatinine 0.66 L 0.60 L Glucose 106 80 Calcium 9.2 8.7 Liver Function 05/23/24 Range/Units 10:09 Total Bilirubin 0.7 (0.2-1.3) mg/dL AST 20 (14-36) U/L ALT 14 (6-35) U/L Alkaline Phosphatase 90 (38-126) U/L Albumin 4.6 (3.5-5.1) g/dL Urine 05/23/24 Range/Units 09:50 Urine Color Yellow (Yellow) Urine Appearance Clear (Clear) Urine pH 5.0 (5.0-9.0) Ur Specific Driscoll 1.033 (1.001-1.035) Urine Protein 1+ H (Negative) mg/dL Urine Glucose (UA) 3+ H (Negative) mg/dL Assessment and Plan Assessment and plan (1) Dental abscess: Code(s): K04.7 - Periapical abscess without sinus Status: Acute Assessment and Plan: * Started Unasyn * will get CTA of the facial bones with contrast in the morning * continue pain control * apply ice as needed for comfort (2) Nausea and vomiting: Code(s): R11.2 - Nausea with vomiting, unspecified Status: Acute Assessment and Plan: dental abscess with associated nausea and vomiting * continue antiemetic and IVF * patient was given 2 L of IV fluids while in the ED (3) Dehydration: Code(s): E86.0 - Dehydration Status: Acute Assessment and Plan: see above plan of care (4) Metabolic acidosis: Code(s): E87.20 - Acidosis, unspecified Status: Acute Assessment and Plan: * bicarb 9, anion gap 24 * will start bicarb drip * continue to trend * respiratory panel negative for influenza a and B, COVID (5) Hypertension: Qualifiers: Hypertension type: primary hypertension Qualified Code(s): I10 - Essential (primary) hypertension Code(s): I10 - Essential (primary) hypertension Status: Acute Assessment and Plan: * blood pressure ranging 130/70 to 152/99 * continue metoprolol 25 mg b.i.d. (6) Type 2 diabetes mellitus without complications: Qualifiers: Diabetes mellitus nursing home insulin use: without nursing home use Qualified Code(s): E11.9 - Type 2 diabetes mellitus without complications Code(s): E11.9 - Type 2 diabetes mellitus without complications Status: Acute Assessment and Plan: * Blood sugars ranging 80-106 * Hgb A1C 8.5 on 08/03/2023 * will recheck hemoglobin A1c * Accu checks AC/HS * low-dose SSI ordered * Hold metformin and semaglutide * hypoglycemic protocol in place * Diabetic diet ordered Quality VTE Prophylaxis VTE prophylaxis: pharmacologic ordered Hospitalist MIPS Advance Care Plan I have confirmed that the patient's Advanced Care Plan is present, code status is documented, or surrogate decision maker is listed in patient medical record.: Yes Medication Reconciliation I have utilized all available resources to obtain, update and review the patients current medications (includes all prescriptions, OTC, herbals, cannabis, and nutritional supplements).: Yes
[2024-05-23] MEDS: AMPICILLIN SULB 3 GM/NS 100 ML 3 GM/100 ML VIAL IVPB ×2 (15:36→22:41)
[2024-05-23 15:43] LABS: Glucose Point of Care 67 mg/dl (65-105)
[2024-05-23 16:23] LABS: Thyroid Stimulating Hormone 0.654 uIU/mL (0.465-4.680)
--- NOTE | 2024-05-23 17:07 | PC.NURSE ---
this RN checked pt blood glucose at 1541 and it was 67, this RN gave pt an orange juice and applesauce. this RN checked it again at 1708 and blood glucose is still 67. pt is eating dinner at this time
[2024-05-23 17:08] LABS: Glucose Point of Care 67 mg/dl (65-105)
[2024-05-23 18:20] LABS: Glucose Point of Care 92 mg/dl (65-105)
--- NOTE | 2024-05-23 18:57 | ADMGEN ---
This patient, Xiomara Larios, was admitted to 3 Med Surg Room 313-01. Patient/family oriented to hospital policies and general routines including ID bracelet, bed and alarms, visiting hours, pain management, procedures, bathroom and other care routines, personal items, smoking policy, room service/diet, and visiting hours. Information on how to activate the Rapid Response Team has been discussed. Patient/Family are encouraged to report perceived risks to care and to ask questions if they do not understand what they are told or what they should do.
[2024-05-23] MEDS: HYDROcodone/acetaminophen (*CRX) 5-325 MG TABLET 1 TAB PO (20:48)
[2024-05-23] MEDS: ONDANSETRON INJ 4 MG/2 ML VIAL IV PUSH (20:49)
[2024-05-23 21:02] LABS: Glucose Point of Care 91 mg/dl (65-105)
[2024-05-23 21:07] LABS: Hemoglobin A1C 6.4 % (<5.7)
[2024-05-23] MEDS: KETOROLAC 30 MG/ML VIAL (*BKC) IV PUSH (22:46)
[2024-05-24 00:30] LABS: Glucose Point of Care 67 mg/dl (65-105)
[2024-05-24] MEDS: SODIUM BICARBONATE 8.4% 100 MEQ in DEXTROSE 5% 1,000 ML 1,000 ML 50 MEQ IV CONT (00:33)
[2024-05-24 00:57] LABS: Glucose Point of Care 82 mg/dl (65-105)
--- NOTE | 2024-05-24 01:34 | PC.NURSE ---
An order was received to start pt on Sodium Bicarbonate 8.4% 100meq in Dextrose 5% 1,000mL at 50ml/hr. PCT Crystal checked the pts blood glucose at 0021 before the continuous IV was started and her blood glucose was 67. The pt was alert and orientated and reported no symptoms of hypoglycemia. The pt received 4oz of orange juice and the continuous IV fluid Sodium Bicarbonate 8.4% 100meq in Dextrose 5% 1,000mL was started at 50ml/hr. Pt's blood glucose was 82 at 0054.
[2024-05-24 05:38] VITALS: BP 125/73; PULSE 92; RESP 14; TEMP 36.8; O2SAT 100
[2024-05-24] MEDS: AMPICILLIN SULB 3 GM/NS 100 ML 3 GM/100 ML VIAL IVPB ×3 (05:45→17:02)
[2024-05-24 05:51] LABS: Basophils Percent Auto 0.5 % (0.2-1.2); Eosinophils Absolute Auto 0.2 K/mm3 (0-0.3); Eosinophils Percent Auto 2.7 % (0-4.4); Hematocrit 43.7 % (37.0-47.0); Hemoglobin 14.3 g/dL (12.0-15.0); Immature Granulocyte Absolute 0.01 K/mm3 (0.00-0.031); Immature Granulocyte Percent A 0.2 % (0-0.5); Lymphocytes Absolute Auto 1.83 K/mm3 (0.9-3.2); Mean Corpuscular HGB Conc 32.7 g/dl (32-36); Mean Corpuscular Hemoglobin 29.9 pg (26-34); Mean Corpuscular Volume 91.2 fl (80-100); Mean Platelet Volume 10.2 fl (7.4-10.4); Monocytes Absolute Auto 0.6 K/mm3 (0.1-0.6); Monocytes Percent Auto 10.7 % (2.6-8.5); Neutrophils Absolute Auto 3.2 K/mm3 (1.3-6.7); Neutrophils Percent Auto 54.9 % (45.5-73.1); Platelet Count Result 275 k/mm3 (150-375); Red Blood Count 4.79 M/mm3 (4.2-5.4); Red Cell Distribution Width 12.9 % (11.5-14.5); White Blood Count 5.9 K/mm3 (4.5-10.0)
[2024-05-24 06:02] LABS: Alanine Aminotransferase 11 U/L (6-35); Albumin Level 4.3 g/dL (3.5-5.1); Alkaline Phosphatase 76 U/L (38-126); Anion Gap 18 mmol/L (4-12); Aspartate Amino Transferase 19 U/L (14-36); Bilirubin,Total 0.5 mg/dL (0.2-1.3); Blood Urea Nitrogen 6 mg/dL (7-17); Carbon Dioxide 17 mmol/L (22-30); Chloride 105 mmol/L (98-107); Estimated CRCL calculation 111 ml/min; Estimated Glomerular Filt Rate > 60; Glucose 108 mg/dL (65-110); Potassium 3.9 mmol/L (3.4-5.0); Sodium 140 mmol/L (137-145)
[2024-05-24 07:51] LABS: Glucose Point of Care 102 mg/dl (65-105)
[2024-05-24] MEDS: ENOXAPARIN 40 MG/0.4 ML SYRINGE SUB-Q (09:45)
[2024-05-24 11:47] LABS: Glucose Point of Care 91 mg/dl (65-105)
--- NOTE | 2024-05-24 12:35 | P.PNIM_ITS ---
Progress Note: A&P Assessment and Plan (1) Dental abscess: Code(s): K04.7 - Periapical abscess without sinus Status: Acute Assessment and Plan: * Started Unasyn * will get CTA of the facial bones with contrast in the morning * continue pain control * apply ice as needed for comfort (2) Nausea and vomiting: Code(s): R11.2 - Nausea with vomiting, unspecified Status: Acute Assessment and Plan: dental abscess with associated nausea and vomiting * continue antiemetic and IVF * patient was given 2 L of IV fluids while in the ED (3) Dehydration: Code(s): E86.0 - Dehydration Status: Acute Assessment and Plan: see above plan of care (4) Metabolic acidosis: Code(s): E87.20 - Acidosis, unspecified Status: Acute Assessment and Plan: * bicarb 9, anion gap 24 * will start bicarb drip * continue to trend * respiratory panel negative for influenza a and B, COVID (5) Hypertension: Qualifiers: Hypertension type: primary hypertension Qualified Code(s): I10 - Essential (primary) hypertension Code(s): I10 - Essential (primary) hypertension Status: Acute Assessment and Plan: * blood pressure ranging 130/70 to 152/99 * continue metoprolol 25 mg b.i.d. 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 insulin use: without assisted use Qualified Code(s): E11.9 - Type 2 diabetes mellitus without complications Code(s): E11.9 - Type 2 diabetes mellitus without complications Status: Acute Assessment and Plan: * Blood sugars ranging 80-106 * Hgb A1C 8.5 on 08/03/2023 * will recheck hemoglobin A1c * Accu checks AC/HS * low-dose SSI ordered * Hold metformin and semaglutide * hypoglycemic protocol in place * Diabetic diet ordered Subjective Date/time seen: 05/24/24 12:35 Review of Systems Review of Systems: All systems reviewed & are unremarkable except as noted in HPI and below Exam Narrative: General: Tearful, appears to be in acute pain,well nourished Head: atraumatic, no encephalopathy Eyes: PERRLA, sclera clear ENT: moist mucous membranes, nasal passages clear, mild swelling around right upper crown Neck: supple, no JVD, no adenopathy, trachea midline Cardiac: Normal S1 and S2. sinus tach, No murmur, gallops or friction rubs, peripheral pulses intact. Respiratory: Lungs clear to auscultation, no adventitious lung sounds, currently on room air Gastrointestinal: soft, non-distended, non-tender, normoactive bowel sounds. : voiding without difficulty. Extremities: moves all extremities well, no edema Skin: clean, dry, intact. No wounds or lesions. Neuro: Alert and oriented x4, cranial nerves intact, no neuro deficits. Psych: very tearful Objective Data Vital Signs Vital Signs: Vital Signs - 24 hr 05/23/24 12:43 05/23/24 13:40 05/23/24 14:31 Temperature Pulse Rate 100 103 H 98 Respiratory Rate 15 20 14 Blood Pressure 135/94 H 130/78 128/72 Pulse Oximetry 100 100 100 Oxygen Delivery 05/23/24 14:46 05/23/24 15:31 05/23/24 16:01 Temperature Pulse Rate 94 103 H 105 H Respiratory Rate 20 18 15 Blood Pressure 128/75 129/79 120/74 Pulse Oximetry 100 100 100 Oxygen Delivery 05/23/24 20:50 05/23/24 21:25 05/24/24 05:38 Temperature 98.0 F 98.2 F Pulse Rate 101 H 92 Respiratory Rate 14 14 Blood Pressure 126/82 125/73 Pulse Oximetry 100 100 Oxygen Delivery Room Air Intake/Output Intake/Output: Intake & Output 05/21/24 05/22/24 05/23/24 05/24/24 23:59 23:59 23:59 23:59 Intake Total 3200 300 Balance 3200 300 Meds/Results Medications: Active Medications Generic Name Dose Route Start Last Admin Trade Name Freq PRN Reason Stop Dose Admin Acetaminophen 650 mg 05/23/24 14:55 Acetaminophen 325 Mg Tablet PO Q4H PRN Mild Pain (1-3) or Fever Hydrocodone Bitart/Acetaminophen 1 tab 05/23/24 22:12 Hydrocodone/Acetaminophen (*Crx) 7.5-325 Mg Tablet PO Q4H PRN Pain Rated 4-6 Dextrose 12.5 gm 05/23/24 14:52 Dextrose 50% 25 Gm/50 Ml Syringe IV PUSH PRN PRN Hypoglycemia Protocol Enoxaparin Sodium 40 mg 05/24/24 09:00 Enoxaparin 40 Mg/0.4 Ml Syringe SUB-Q DAILY DANIELLE Glucagon 1 mg 05/23/24 14:52 Glucagon For Inj 1 Mg Vial IM PRN PRN Hypoglycemia Protocol Glucose 15 gm 05/23/24 14:52 Glucose Oral Gel 15 Gm Of Glucse In 37.5 Gm Tube PO PRN PRN Hypoglycemia Protocol Ampicillin Sodium/Sulbactam Sodium 3 gm in 100 mls @ 200 mls/hr 05/23/24 22:00 05/24/24 05:45 Unasyn 3 Gm/Ns 100 Ml IVPB 200 mls/hr Q6HR DANIELLE Administration Dextrose 1,000 mls @ 100 mls/hr 05/23/24 14:52 Dextrose 5% 1,000 Ml IVPB PRN PRN Hypoglycemia Protocol Sodium Bicarbonate 100 meq/ 1,100 mls @ 50 mls/hr 05/24/24 00:10 05/24/24 00:33 Dextrose IV CONT 50 mls/hr .Q22H DANIELLE Administration Ibuprofen 600 mg 05/23/24 22:10 Ibuprofen 600 Mg Tablet PO Q6H PRN Pain Rated 1-3 Insulin Aspart 2 - 5 units 05/23/24 17:00 05/23/24 17:06 Insulin Aspart (*Bkc) 100 Units/Ml SUB-Q Not Given T[facility] Protocol Insulin Aspart 1 - 2 units 05/23/24 21:00 05/23/24 22:24 Insulin Aspart (*Bkc) 100 Units/Ml SUB-Q Not Given HS [facility] Protocol Ondansetron HCl 4 mg 05/23/24 14:55 05/23/24 20:49 Ondansetron Inj 4 Mg/2 Ml Vial IV PUSH 4 mg Q6H PRN Administration Nausea And Vomiting Radiology Results: ITS Impressions Face CT 05/24/24 08:59 IMPRESSION: 1. Carious lesion of tooth 21. 2. Carious lesion of tooth 15 with incomplete mormon. 3. Sialoliths in left submandibular gland. Labs Labs: Laboratory Results - last 24 hr 05/23/24 05/23/24 05/23/24 09:50 10:09 13:18 WBC RBC Hgb Hct MCV MCH MCHC RDW Plt Count MPV Immature Gran % (Auto) Neut % (Auto) Lymph % (Auto) [place] % (Auto) Eos % (Auto) Baso % (Auto) Lymph # (Auto) [place] # (Auto) Eos # (Auto) Baso # (Auto) Abs Immat Gran (auto) Absolute Neuts (auto) Absolute Nucleated RBC Nucleated RBC % Sodium 144 Potassium 4.1 Chloride 111 H Carbon Dioxide 9 L Anion Gap 24 H BUN 11 Creatinine 0.60 L Estim Creat Clear Calc 106 Estimated GFR > 60 Glucose 80 POC Capillary Glucose Hemoglobin A1c 6.4 H Calcium 8.7 Total Bilirubin AST ALT Alkaline Phosphatase Total Protein Albumin TSH 0.654 05/23/24 05/23/24 05/23/24 15:41 17:05 18:18 WBC RBC Hgb Hct MCV MCH MCHC RDW Plt Count MPV Immature Gran % (Auto) Neut % (Auto) Lymph % (Auto) [place] % (Auto) Eos % (Auto) Baso % (Auto) Lymph # (Auto) [place] # (Auto) Eos # (Auto) Baso # (Auto) Abs Immat Gran (auto) Absolute Neuts (auto) Absolute Nucleated RBC Nucleated RBC % Sodium Potassium Chloride Carbon Dioxide Anion Gap BUN Creatinine Estim Creat Clear Calc Estimated GFR Glucose POC Capillary Glucose 67 67 92 Hemoglobin A1c Calcium Total Bilirubin AST ALT Alkaline Phosphatase Total Protein Albumin TSH 05/23/24 05/24/24 05/24/24 20:14 00:21 00:54 WBC RBC Hgb Hct MCV MCH MCHC RDW Plt Count MPV Immature Gran % (Auto) Neut % (Auto) Lymph % (Auto) [place] % (Auto) Eos % (Auto) Baso % (Auto) Lymph # (Auto) [place] # (Auto) Eos # (Auto) Baso # (Auto) Abs Immat Gran (auto) Absolute Neuts (auto) Absolute Nucleated RBC Nucleated RBC % Sodium Potassium Chloride Carbon Dioxide Anion Gap BUN Creatinine Estim Creat Clear Calc Estimated GFR Glucose POC Capillary Glucose 91 67 82 Hemoglobin A1c Calcium Total Bilirubin AST ALT Alkaline Phosphatase Total Protein Albumin TSH 05/24/24 05/24/24 05/24/24 05:21 07:44 11:32 WBC 5.9 RBC 4.79 Hgb 14.3 Hct 43.7 MCV 91.2 MCH 29.9 MCHC 32.7 RDW 12.9 Plt Count 275 MPV 10.2 Immature Gran % (Auto) 0.2 Neut % (Auto) 54.9 Lymph % (Auto) 31.0 [place] % (Auto) 10.7 H Eos % (Auto) 2.7 Baso % (Auto) 0.5 Lymph # (Auto) 1.83 [place] # (Auto) 0.6 Eos # (Auto) 0.2 Baso # (Auto) 0.0 Abs Immat Gran (auto) 0.01 Absolute Neuts (auto) 3.2 Absolute Nucleated RBC 0.000 Nucleated RBC % 0.0 Sodium 140 Potassium 3.9 Chloride 105 Carbon Dioxide 17 L Anion Gap 18 H BUN 6 L D Creatinine 0.57 L Estim Creat Clear Calc 111 Estimated GFR > 60 Glucose 108 POC Capillary Glucose 102 91 Hemoglobin A1c Calcium 9.0 Total Bilirubin 0.5 AST 19 ALT 11 Alkaline Phosphatase 76 Total Protein 8.0 Albumin 4.3 TSH Quality VTE Prophylaxis VTE prophylaxis: pharmacologic ordered
[2024-05-24 14:00] VITALS: BP 129/76; PULSE 90; RESP 20; TEMP 36.9; O2SAT 100
[2024-05-24] MEDS: HYDROcodone/acetaminophen (*CRX) 7.5-325 MG TABLET 1 TAB PO (16:20)
--- NOTE | 2024-05-24 16:33 | PM.DS ---
DS: Admitting Diagnosis Discharge Date 05/24/24 Admitting Diagnosis Dental abscess Nausea and vomiting Dehydration Metabolic acidosis Hypertension Type 2 diabetes mellitus DS: Discharge Diagnosis Discharge Diagnosis (1) Dental abscess: Code(s): K04.7 - Periapical abscess without sinus Status: Acute (2) Nausea and vomiting: Code(s): R11.2 - Nausea with vomiting, unspecified Status: Acute (3) Dehydration: Code(s): E86.0 - Dehydration Status: Acute (4) Metabolic acidosis: Code(s): E87.20 - Acidosis, unspecified Status: Acute (5) Hypertension: Qualifiers: Hypertension type: primary hypertension Qualified Code(s): I10 - Essential (primary) hypertension Code(s): I10 - Essential (primary) hypertension Status: Acute (6) Type 2 diabetes mellitus without complications: Qualifiers: Diabetes mellitus superintendent container terminal insulin use: without jail use Qualified Code(s): E11.9 - Type 2 diabetes mellitus without complications Code(s): E11.9 - Type 2 diabetes mellitus without complications Status: Acute DS: Summary Hospital Course Reason for hospitalization: Dental abscess Nausea and vomiting Dehydration Metabolic acidosis Hypertension Type 2 diabetes mellitus Hospital Course: This is a 39-year-old female with a significant past medical history of hypertension, type 2 diabetes mellitus, ADHD, anxiety who presented to the hospital with reports of nausea, vomiting, dental abscess. patient states that the pain started on of last week and she was having trouble getting in with her dentist. When she tried to get in this week with her dentist the dentist had a medical emergency and was not going to be and all week. She states that this tooth is a crown tooth with a root canal. She rates her pain 10/10 and is tearful in the room. She denies any fever, chills, nausea, vomiting, diarrhea, abdominal pain, chest pain, shortness a breath. She states she is not able to eat without it causing her incredible pain. Workup in the hospital included labs which showed a white blood cell count of 11.2, bicarb 12, anion gap 21, creatinine 0.6 beta hydroxybutyrate 4.83. UA showed 1+ urine protein, 3+ urine glucose, 4+ urine ketones, 3+ urine blood, 51-100 urine RBC. test was negative. Respiratory panel was negative for influenza a and B, COVID. Patient was given 2 L IV fluids, Reglan, and started on Unasyn while in the ED. Patient was transition to Augmentin, her nausea and vomiting has resolved, her pain is better controlled. She is stable for discharge at this time. She will need to finish all of her antibiotic as directed and then follow up with her dentist as soon as possible. She was sent home with pain medication and Zofran as needed. Final diagnosis: Metabolic acidosis, dehydration, dental abscess Status at Discharge Cognitive/behavioral status at discharge: Alert oriented x3 Functional status at discharge: independent ambulation Overall status at discharge: patient is progressing back to baseline Time Spent with Patient Time attestation: Total time spent providing and/or coordinating discharge services: Time spent: Greater than 30 minutes Exam Narrative: General: No acute distress ENT: mild swelling around right upper crown Cardiac: Normal S1 and S2. sinus tach, No murmur, gallops or friction rubs, peripheral pulses intact. Respiratory: Lungs clear to auscultation, no adventitious lung sounds, currently on room air Gastrointestinal: soft, non-distended, non-tender, normoactive bowel sounds. : voiding without difficulty. Neuro: Alert and oriented x4 DS: Data Data Completed and Pending Completed studies during hospitalization: Face CT Pending studies at discharge: None Labs on day of discharge: Labs from last 24 hours 05/24/24 05/24/24 05/24/24 11:32 07:44 05:21 WBC 5.9 RBC 4.79 Hgb 14.3 Hct 43.7 MCV 91.2 MCH 29.9 MCHC 32.7 RDW 12.9 Plt Count 275 MPV 10.2 Immature Gran % (Auto) 0.2 Neut % (Auto) 54.9 Lymph % (Auto) 31.0 Love % (Auto) 10.7 H Eos % (Auto) 2.7 Baso % (Auto) 0.5 Lymph # (Auto) 1.83 Love # (Auto) 0.6 Eos # (Auto) 0.2 Baso # (Auto) 0.0 Abs Immat Gran (auto) 0.01 Absolute Neuts (auto) 3.2 Absolute Nucleated RBC 0.000 Nucleated RBC % 0.0 Sodium 140 Potassium 3.9 Chloride 105 Carbon Dioxide 17 L Anion Gap 18 H BUN 6 L D Creatinine 0.57 L Estim Creat Clear Calc 111 Estimated GFR > 60 Glucose 108 POC Capillary Glucose 91 102 Hemoglobin A1c Calcium 9.0 Total Bilirubin 0.5 AST 19 ALT 11 Alkaline Phosphatase 76 Total Protein 8.0 Albumin 4.3 05/24/24 05/24/24 05/23/24 00:54 00:21 20:14 WBC RBC Hgb Hct MCV MCH MCHC RDW Plt Count MPV Immature Gran % (Auto) Neut % (Auto) Lymph % (Auto) [place] % (Auto) Eos % (Auto) Baso % (Auto) Lymph # (Auto) Love # (Auto) Eos # (Auto) Baso # (Auto) Abs Immat Gran (auto) Absolute Neuts (auto) Absolute Nucleated RBC Nucleated RBC % Sodium Potassium Chloride Carbon Dioxide Anion Gap BUN Creatinine Estim Creat Clear Calc Estimated GFR Glucose POC Capillary Glucose 82 67 91 Hemoglobin A1c Calcium Total Bilirubin AST ALT Alkaline Phosphatase Total Protein Albumin 05/23/24 05/23/24 05/23/24 18:18 17:05 09:50 WBC RBC Hgb Hct MCV MCH MCHC RDW Plt Count MPV Immature Gran % (Auto) Neut % (Auto) Lymph % (Auto) [place] % (Auto) Eos % (Auto) Baso % (Auto) Lymph # (Auto) Love # (Auto) Eos # (Auto) Baso # (Auto) Abs Immat Gran (auto) Absolute Neuts (auto) Absolute Nucleated RBC Nucleated RBC % Sodium Potassium Chloride Carbon Dioxide Anion Gap BUN Creatinine Estim Creat Clear Calc Estimated GFR Glucose POC Capillary Glucose 92 67 Hemoglobin A1c 6.4 H Calcium Total Bilirubin AST ALT Alkaline Phosphatase Total Protein Albumin Procedures/Treatments: None Discharge Plan Discharge Attending physician on discharge: Aryan Sanchez Discharging Clinician: Michelle Roberts Anticipated Discharge Date/Time: 05/24/24 16:25 Patient Disposition: Home, Self-Care Activity: as tolerated Diet: as tolerated and regular Discharge Instructions: Advanced diet back to regular food when able Continue taking antibiotics until course is complete Follow-up with your dentist as soon as possible Take ibuprofen 600 mg q.6 hour as this will help with inflammation/pain Alternate with [place] 7.5/325 Tylenol for pain control Continue to use ice compresses as needed. Main thing is to stay hydrated I prescribed you Zofran for nausea. Take this as needed. Patient Instructions: Antibiotic Form Patient Language: German Stand Alone Forms: General Discharge Information Follow-up/Referrals: Gus Mobley, [Primary Care Provider] - 1 Week Discharge Medications: New hydrocodone-acetaminophen 7.5-325 mg Tablet 1 tablet PO Q4H PRN (Reason: Pain Rated 4-6) Qty: 40 0RF ibuprofen 600 mg Tablet 600 mg PO Q6H PRN (Reason: Pain Rated 1-3) Qty: 30 0RF ondansetron 4 mg tablet,disintegrating 4 mg PO Q8H PRN (Reason: nausea and vomiting) Qty: 20 0RF amoxicillin-pot clavulanate 875-125 mg tablet 1 tablet PO Q12H Qty: 20 0RF Continued venlafaxine [Effexor XR] 75 mg capsule,extended release 24hr 75 mg PO DAILY (DME) blood-glucose meter [Blood Glucose Monitoring] Kit See Rx Instructions .ROUTE .MEDSUPPLY Qty: 1 0RF Rx Instructions: Daily and prn (DME) OneTouch Ultra Blue Test Strip Strip See Rx Instructions .ROUTE .MEDSUPPLY Qty: 100 3RF Rx Instructions: Use to check blood sugars daily or PRN (DME) lancets [OneTouch UltraSoft Lancets] [facility] [place]ructions .ROUTE .MEDSUPPLY Qty: 100 3RF Rx Instructions: Use to check blood sugars daily or PRN buspirone 10 mg tablet 15 mg PO BID Qty: 90 1RF metformin 500 mg tablet 1,000 mg PO BID Qty: 360 1RF semaglutide 2 mg/dose (8 mg/3 mL) pen injector 2 mg subcut WEEKLY Qty: 3 4RF metoprolol tartrate 25 mg tablet See Rx Instructions .ROUTE .COMPLEX Qty: 60 5RF Dose Instruction: Take 1 tablet by mouth twice daily Rx Instructions: Take 1 tablet by mouth twice daily empagliflozin 10 mg tablet 10 mg PO DAILY Qty: 30 5RF Date of admission: 05/23/24 14:42 Primary Care Provider: Gus Mobley Admitting Provider: Juaquin Frederick Attending physician on admission: Michelle Roberts Condition: Improved Quality VTE Prophylaxis VTE prophylaxis: pharmacologic ordered Hospitalist MIPS Heart Failure (Exclusion) Patient has history of Heart Transplant or Left Ventricular Assistive Device?: No IF YES, STOP HERE Heart Failure (Qualifier) Patient has current or prior documentation of LVEF less than or equal to 40%, or mod/servere depressed LVSF?: No IF NO, STOP HERE
[2024-05-24 17:10] LABS: Glucose Point of Care 93 mg/dl (65-105)
== END 2024-05-24 17:45 | disposition home or self-care (01) ==
LOC: ANHED 17:24 → ANH3MEDSUR 17:26
PROVIDERS: Admitting Provider Internal Medicine; Emergency Provider Physician Assistant; PCP Internal Medicine; Visit Provider Nurse Practitioner Acute Care
DX: K04.7 Periapical abscess without sinus (principal); R11.2 Nausea with vomiting, unspecified; E86.0 Dehydration; E87.20 Acidosis, unspecified; I10 Essential (primary) hypertension; E11.9 Type 2 diabetes mellitus without complications; F17.210 Nicotine dependence, cigarettes, uncomplicated; F90.9 Attention-deficit hyperactivity disorder, unspecified type; F41.9 Anxiety disorder, unspecified; Z20.822 Contact with and (suspected) exposure to COVID-19; Z79.84 Long term (current) use of oral hypoglycemic drugs; Z79.899 Other long term (current) drug therapy
CPT/HCPCS: 36415; 70487; 80048; 80053; 81001; 81025; 82010; 82948; 83036; 83735; 84100; 84443; 85025; 87636; 96361; 96365; 96372; 96375; 96376; 99285; A9270; G0378; G0379; J0295; J1650; J1885; J2405; J2765; J7030; J7070; J7120; Q9967

== ENCOUNTER 2024-07-13 08:05 | Outpatient (CLI) | payer OTHER, SELFPAY ==
--- OUTSIDE RECORDS SUMMARY | 2024-07-13 08:15 | XMS_ITS | Clinical Summary ---
Author Organization [facility] [place] [address] Address [address] [place] [id number] Care Team Providers Care Front End Developer Designer Name Role Phone Higinio Ramey Primary Care Provider [phone] Allergies No known active allergies Medications buPROPion [...] 2:58 PM CDT Height 175.3 cm (5' 9 ) 11/26/2023 2:58 PM CDT Body Mass Index [...] patient's age to complete this topic Insurance Community Cash [facility] Care Teams Front End Developer Designer Relationship Specialty Start Date End Date Higinio Ramey DO [address] [place] [address] [place] [id number] PCP - General Family Medicine 08/05/23
--- OUTSIDE RECORDS SUMMARY | 2024-07-13 08:15 | XMS_ITS | Patient Health Record ---
Author Organization [facility] Address [address] [place] [address] Care Team Providers Care Box Sealing Machine Operator Name Role Phone Socorro Eliazlde Primary Care Provider [phone] Seth Unavailable [phone] Allergies Allergen (clinical drug ingredient) Drug/Non Drug Allergy documented on EMR Reaction Allergy Type Onset Date Status No Known Drug Allergy Unknown Drug Allergy Active Reason For Referral No Information Medications Medication SIG (Take, Route, Fr equency, Duration) Notes Start Date End Date Status ALPRAZolam 0.5 MG 1 tablet Orally Twic e a day as needed for 14 days Active busPIRone HCl 15 MG 1 tablet Orally Twic e a day for 30 days Active Ozempic Active Effexor XR 75 MG 1 capsule with food Orally Once a day for 30 days Active metFORMIN HCl 1000 MG 1 tablet with a me al Orally Once a day Active Jardiance Active Metoprolol Succinate Active Social History Tobacco Use: Social History Observation Description Date Details (start date - stop date) Former Smoker NA - NA Dont use, Tobacco Use/Smoking Question Answer Notes Are you a nonsmoker Tobacco Control (Standard) Question Answer Notes Tobacco use: Former smoker Additional Findings: Tobacco non-user Ex-cigaret te smoker How long has it been since you last smoked? 5-10 years Problems Problem Type SNOMED Code ICD Code Onset Dates Problem Status W/U Status Risk Notes Problem Generalized anxiety disorder (38934418) Generalized anxiety disorder (F41.1) 3 Active confirmed Problem Major depressive disorder (287121772) Major depressive disorder (F32.9) 3 Active confirmed Problem Panic disorder (906813185) Panic disorder (F41.0) 3 Active confirmed Encounters Encounter Location Date Provider Diagnosis [address] [address] 07/16/2023 Kyria Seth Panic disorder F41.0 ; Major depressive disorder F32.9 and Generalized anxiety disorder F41.[address] [address] 10/01/2023 Kyria Seth Panic disorder F41.0 ; Major depressive disorder F32.9 and Generalized anxiety disorder F41.[address] [id number] 11/24/2023 Kyria Seth Panic disorder F41.0 ; Major depressive disorder F32.9 and Generalized anxiety disorder F41.[address] [address] 02/23/2024 Kyria Seth Panic disorder F41.0 ; Major depressive disorder F32.9 and Generalized anxiety disorder F41.[address] [address] 06/15/2024 Kyria Seth Panic disorder F41.0 ; Major depressive disorder F32.9 and Generalized anxiety disorder F41.1 Assessments Encounter Date Diagnosis (ICD Code) Assessment Notes Treatment Notes Treatment Clinical Notes Section Notes 11/24/2023 Panic disorder (ICD-10 - F41.0) 02/23/2024 Panic disorder (ICD-10 - F41.0) 06/15/2024 Panic disorder (ICD-10 - F41.0) 10/01/2023 Panic disorder (ICD-10 - F41.0) 07/16/2023 Panic disorder (ICD-10 - F41.0) 07/16/2023 Major depressive disorder (ICD-10 - F32.9) 10/01/2023 Major depressive disorder (ICD-10 - F32.9) 02/23/2024 Major depressive disorder (ICD-10 - F32.9) 06/15/2024 Major depressive disorder (ICD-10 - F32.9) 11/24/2023 [...] Currently, in therapy with Patrica Duarte at [facility] in [place]. Today's visit: Patient is a 38-year-old female who presents for a psychiatric follow-up, is currently located in the [facility] and is being seen over the [...] or be administered own oral medications per [facility] protocols. Provided informed consent with understanding of [...] out of therapy with Patrica Duarte at [facility] in [place]. Today's visit: Patient is a 38-year-old female who presents for a psychiatric follow-up, is currently located in the [facility] and is being seen over the [...] or be administered own oral medications per [facility] protocols. Provided informed consent with understanding of side effects, adverse effects, risks and benefits as well as alternative treatments as previously discussed and with the above recommended medications & other aspects of the treatment program. Agrees to return sooner if symptoms worsen or suicidal or homicidal ideations occur. 06/15/2024 Generalized anxiety disorder (ICD-10 - F41.1) History: [...] out of therapy with Patrica Duarte at [facility] in [place]. Today's visit: Patient is a 39-year-old female who presents for a psychiatric follow-up, is currently located in the [facility] and is being seen over the phone. Previously seen on Feb 2024 and during this appt was continued on Effexor, Alprazolam 0.5 mg and Buspar 15 mg BID. Previous PHQ-9 score of 0, today is 0. Continues to report stability in anxiety/panic and depressive sx on her current doses of medications and wishes to continue taking as prescribed. No acute safety concerns at the time of this appt, she appears motivated for treatment and was provided an opportunity to ask questions. May self-administer medications or be administered own oral medications per [facility] protocols. Provided informed consent with understanding of [...] Currently, in therapy with Patrica Duarte at [facility] in [place]. Today's visit: Patient is a 38-year-old female who presents for a psychiatric follow-up, is currently located in the [facility] and is being seen over the [...] or be administered own oral medications per [facility] protocols. Provided informed consent with understanding of side effects, adverse effects, risks and benefits as well as alternative treatments as previously discussed and with the above recommended medications & other aspects of the treatment program. Agrees to return sooner if symptoms worsen or suicidal or homicidal ideations occur. 07/16/2023 Generalized anxiety disorder (ICD-10 - F41.1) [...] Currently, in therapy with Patrica Duarte at [facility] in [place]. Today's visit: Patient is a 38-year-old female who presents for a psychiatric follow-up, is currently located in the [facility] and is being seen over the [...] or be administered own oral medications per [facility] protocols. Provided informed consent with understanding of [...] Insured Coverage Start Date Coverage End Date [employer]surv [facility] Attn Claims Department [address] [place] [address] [phone] [id number] Xiomara Larios Self - patient is the insured 3 [employer] Att[employer] Claims Department [address] [place] [address] [phone] [id number] Xiomara Larios Self - patient is the insured 3 Medical (General) History Medical History History ICD Code Diabetes mellitus 250.00 Surgical History Surgery Date(Month/Year) cyst removal 05/2022 Hospitalization History Reason Date(Month/Year) Dehydration - hospitalization and infect ed tooth - 1 day May 2024
--- OUTSIDE RECORDS SUMMARY | 2024-07-13 08:16 | XMS_ITS | Data Portability ---
Author Organization [facility] [place] Address [address] [address] [address] Care Team Providers Care Senior Safety Support Manager Name Role Phone NYDIA MENCHACA Primary Care Provider LASHAE ACHARYA Primary Care Provider Assessment No assessment recorded. Plan of Treatment Reminders Order Date Submit Date Provider Last Modified By Organization Details Last Modified Time Details Appointments None recorded. Lab None recorded. Referral None recorded. Procedures None recorded. Surgeries laparoscopi c ovarian cystectomy (SURG) 2022 023 [facility], [address] [address], [place], [address], 3 17:16:25 Imaging US, pelvis 2022 [address]23 [address], [address], [place], [address], 3 17:06:37 US, transvagina l 2022 [address], [address], [place], [address], 3 17:06:37 Medication Orders Xanax 0.5 mg tablet 2022 023 [facility], [address] [place], [address], 15:09:23 Patient TargetsNo targets recorded. Patient InstructionsNo instructions recorded. Reason for Referral None Reported. Results Created Date Observation Date Name Description Value Unit Range Abnormal Flag Note LastModifiedBy Organization Detail LastModifiedTime 05/13/1905/13/2022 US, pelvi s No observ ation record ed. [address], [place], [address], 05/13/2022 11:46:24 05/13/19 23 05/13/2022 US, trans vagin al No observ ation record ed. [address], [place], [address], 05/13/2022 11:46:16 05/13/1905/13/2022 US, pelvi s No observ ation record ed. [email or web address] [facility] [address], [place], [address], 05/14/2022 12:29:54 Result Notes None recorded. Problems Name Problem SNOMED Code Status Onset Date Resolution Date Notes Provider Name and Address Organization Details Recorded Time Miscarriag e [id number] Completed 202205/14/2022 Duy Darden MD [address], [place], [address], [facility] 13:00:47 Problem Notes None recorded. Procedures Surgical History Date Name Laterality Status Provider Name and Address Organization Details Recorded Time 06/11/19 LAPAROSCOPIC OVARIAN CYSTECTOMY (SURG) completed [facility] 06/24/2022 17:46:33 06/11/19 LAPAROSCOPIC OVARIAN CYSTECTOMY (SURG) completed [facility] 06/30/2022 11:03:16 Imaging Results Imaging Date Name Status LastModified by Organization Details LastModified Time 05/13/2022 US, pelvis completed [address], [place], [address], 05/13/2022 11:46:24 05/13/2022 US, transvaginal completed [email or web address] Unruly cruz [address], [place], [address], 05/13/2022 11:46:16 05/13/2022 US, pelvis completed [email or web address] [facility] [address], [place], [address], 05/14/2022 12:29:54 Procedure Notes None recorded. Medical [...] Not Available Not Available No t Available ReVent MedicalToCerevo Ultra Test strips USE TO CHECK BLOOD [...] Available No t Available Sprintec (28) 0.25 mg-0.035 mg tablet TAKE 1 TABLET BY MOUTH [...] Updated DateTime 05/14/2022 170.18 cm 30.5 kg/m2 15731.51 g 167 mm[Hg] 100 mm[Hg] [facility] 3 12:37:49 Date Recorded Body height Body mass index (BMI) Body weight Systolic blood pressure Diastolic blood pressure Provider Name and Address Organization Details Last Updated DateTime 06/02/2022 170.18 cm 30.7 kg/m2 91277.1 g 151 mm[Hg] 95 mm[Hg] [facility] 3 14:34:48 Date Recorded Body height Body mass index (BMI) Body weight Systolic blood pressure Diastolic blood pressure Provider Name and Address Organization Details Last Updated DateTime 06/18/2022 170.18 cm 30.7 kg/m2 39234.1 g 152 mm[Hg] 87 mm[Hg] [facility] 3 11:20:20 Social History Question Answer Notes LastModified by Organizat ion Details LastModified Time Tobacco Smoking Status Never Smoker [facility] 06/18/2022 11:06:14 Do You Have An [...] Or The Highest Degree You Have Received? 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 FY81208-0 Information not available 08/25/2021 Do You Use Any Illicit Or Recreational Drugs? No Information not available 08/25/2021 Do You Use Sunscreen Routinely? Yes Information not available 08/25/2021 Have You Used IV Drugs? No Information not available 08/25/2021 Sex: Unknown Functional Status Question Answer Note LastModified by Organizat ion Details LastModified Time Do you have difficulty walking or climbing stairs? No [email or web address] Information not available 06/18/2022 Are you able to walk? YESWOREST Information not available 08/25/2021 Are you able to care for yourself? Yes [email or web address] Information not available 06/18/2022 Do you have difficulty dressing or bathing? No [email or web address] Information not available 06/18/2022 What is your [...] SNOMED-CT Code Diagnosis ICD10 Code Diagnosis Note [id number] CLIFTON Egan [place] [address] [address] 08/25/2021 11:26:22 08/25/2021 14:20:27 Vaginitis 96602942 N76.0 Here for vulvar itching and irritation x 2 monthsRece ntly diagnosed with type 2 diabetes 1 year ago. Working on BS controlWe discussed the link between uncontroll ed BS and recurrent yeast infections . Vulvar care guidelines discussed in-depth.V aginitis panel sent.Will treat for yeast.Due for WWE, patient encouraged to schedule this Contracept ion care management 897528481 Z30.9 She has been on combined oral [...] Pt verbalized understand ing. Hypertensive disorder 38 614592 I10 BP today 192/109, 166/96, and then [...] counseling and review of plan of care. [id number] CLIFTON Egan [place] [address] [address] 05/12/2022 12:09:48 05/12/2022 14:21:29 Gynecologic examination 52397409 Z01.419 Take Calcium with Vitamin D 1200mg [...] ED precaution s discussed. 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 More than 50% was counseling . [id number] Duy Darden MD [place] [address] [address] 06/02/2022 14:19:37 06/02/2022 15:23:01 [address]57 F41.[address] atoma of ovary 156421970 D27.9 this patient is a 37-year-ol d female presents for preoperati ve care. She has a dermoid cyst. We agreed to perform laparoscop ic ovarian cystectomy . She understand s the risks, benefits, and alternativ es. She has completed the informed consent process and is ready to proceed. [id number] Duy Darden MD [place] [address] [address] 06/18/2022 11:06:10 06/18/2022 11:49:04 Postoperative care 639912128 Z48.89 this patient is a 37-year-ol d [...] Giang Member ID Guarantor Name 05/13/2022 1 [facility] - DOS ON OR AFTER 20 (MEDICAID REPLACEMENT - HMO) [id number] Xiomara Larios [id number] Xiomara Maearl 05/14/2022 1 [facility] - DOS ON OR AFTER 20 (MEDICAID REPLACEMENT - HMO) [id number] Xiomara Larios [id number] Xiomara Maearl 06/02/2022 1 [facility] - DOS ON OR AFTER 20 (MEDICAID REPLACEMENT - HMO) [id number] Xiomara Larios [id number] Xiomara Maednieves 06/18/2022 1 [facility] - DOS ON OR AFTER 20 (MEDICAID REPLACEMENT - HMO) [id number] Xiomara Larios [id number] Xiomara Larios Notes Date Note Type Note [...] infection. Duy Darden MD [address], [place], [address], [facility] 05/15/2022 00:07:43 06/02/2022 text/html This patient [...] infection. Duy Darden MD [address], [place], [address], [facility] 06/02/2022 15:22:15 06/18/2022 text/html this patient is a 37-year-old female presents for postoperative care. She is recovering normally from a resection of dermoid cyst from her right ovary. She has no complaints. Her incisions are clean dry and intact. She has no pain. She is well. She will follow-up for well-woman exam or any gynecologic problems. Duy Darden MD [address], [place], [address], [facility] 06/18/2022 11:47:46 OBGyn Episode Ob Episode Information Episode Created Date Number of Fetuses Patient Bloodtype Patient rh Status Prepregnancy Weight lbs Domestic Partner Domestic Partner Phone Father Name Store Sales Leader Status 06/19/19 23 1 CLOSED Fetus Data First Name Last Name Admitted to NICU Weight (g) Sex Living Outcome Pediatric Complications Fetus ID Race Codes Race Delivery Type , Spontane ous [id number] Can Calculation Initial Can Date Initial Exam [...]
--- OUTSIDE RECORDS SUMMARY | 2024-07-13 08:16 | XMS_ITS | Referral Summary ---
Author Organization [facility] [address] Address [address] [place] [address] Care Team Providers Care Disposal Operator Name Role Phone Higinio Ramey Primary Care Provider [phone] Allergies No known active allergies Medications buPROPion [...] Plan of Treatment Not on file Insurance [id number] [facility] Care Teams Disposal Operator Relationship Specialty Start Date End Date Higinio Ramey DO [facility] [facility] [address] [address] PCP - General Family Medicine 08/05/23
[2024-07-13 19:49] LABS: Creatinine Urine 117.6 mg/dL; MALB Creatinine Ratio 7.3 mg/g (0-30); Microalbumin Urine Random 8.6 mg/L (0-16.7)
[2024-07-13 20:10] LABS: Alanine Aminotransferase 13 U/L (6-35); Albumin Level 4.5 g/dL (3.5-5.1); Alkaline Phosphatase 102 U/L (38-126); Anion Gap 10 mmol/L (4-12); Aspartate Amino Transferase 22 U/L (14-36); Bilirubin,Total 0.5 mg/dL (0.2-1.3); Blood Urea Nitrogen 13 mg/dL (7-17); Calcium 9.3 mg/dL (8.4-10.2); Carbon Dioxide 28 mmol/L (22-30); Chloride 101 mmol/L (98-107); Cholesterol 156 mg/dL (0-200); Estimated Glomerular Filt Rate > 60; Free T4 Free Thyroxine 1.19 ng/dL (0.78-2.19); Glucose 118 mg/dL (65-110); HDL Direct 42 mg/dL; Potassium 4.2 mmol/L (3.4-5.0); Sodium 139 mmol/L (137-145); Triglycerides 105 mg/dL (<150); Vitamin D 25 Hydroxy 40.3 ng/mL
[2024-07-13 20:19] LABS: LDL Cholesterol Direct 82 mg/dL
[2024-07-13 20:44] LABS: Thyroid Stimulating Hormone 0.538 uIU/mL (0.465-4.680)
== END 2024-07-13 08:06 | disposition home or self-care (01) ==
LOC: ANHGOSHLAB 08:07
PROVIDERS: PCP Internal Medicine; Visit Provider Nurse Practitioner Family
DX: E11.9 Type 2 diabetes mellitus without complications (principal); I10 Essential (primary) hypertension
CPT/HCPCS: 36415; 80053; 80061; 82043; 82306; 82607; 84439; 84443

== ENCOUNTER 2024-09-06 10:55 | Outpatient (CLI) | payer OTHER, SELFPAY ==
--- NOTE | ~2024-09-06 | US_ITS ---
Thyroid ultrasound. Clinical History: Thyroid nodule Findings: Real-time sonography of the thyroid gland was performed. The right lobe measures 4.8 x 1.6 x 2.0 cm. The left lobe measures 4.5 x 1.1 x 2.1 cm. The isthmus is 3 mm in AP diameter. Thyroid parenchyma is somewhat heterogeneous with probable several tiny scattered 2-3 mm hypoechoic n odules. Impression: Probable scattered 2-3 mm tiny hypoechoic nodules in the thyroid lobe, which is mildly heterogeneous overall.. Reviewed, dictated and finalized at location M. Impression: Probable scattered 2-3 mm tiny hypoechoic nodules in the thyroid lobe, which is mildly heterogeneous overall..
--- OUTSIDE RECORDS SUMMARY | 2024-09-06 12:46 | XMS_ITS | Clinical Summary ---
Author Organization [facility] [address] Address [address] [place] [address] Care Team Providers Care Agriculture Intern Name Role Phone Higinio Ramey Primary Care Provider [phone] Allergies No known active allergies Medications buPROPion [...] Regular Well Visit/Exam 18-64 2005 Influenza Vaccine (Season Ended) 2024 HPV Vaccines Aged Out No longer eligi ble based on patient's age to complete this topic Pneumococcal vaccine <65 Aged Out No longer eligible based on patient's age to complete this topic Insurance [employer] [facility] Care Teams Agriculture Intern Relationship Specialty Start Date End Date Higinio Ramey DO [address] [facility] [address] [place] [address] [place] [address] PCP - General Family Medicine 08/05/23
--- OUTSIDE RECORDS SUMMARY | 2024-09-06 12:47 | XMS_ITS | Patient Health Record ---
Author Organization [facility] Address [address] [place] [address] Care Team Providers Care Court Advocate Name Role Phone Socorro Elizalde Primary Care Provider Arpan Seth Unavailable [phone] Allergies Allergen (clinical drug ingredient) Drug/Non Drug Allergy documented on EMR Reaction Allergy Type Onset Date Status No Known Drug Allergy Unknown Drug Allergy Active Reason For Referral No Information Medications Medication SIG (Take, Route, Fr equency, Duration) Notes Start Date End Date Status busPIRone HCl 15 MG 1 tablet Orally Twic e a day for 30 days Active Ozempic Active Effexor XR 75 MG 1 capsule with food Orally Once a day for 30 days Active metFORMIN HCl 1000 MG 1 tablet with a me al Orally Once a day Active Jardiance Active ALPRAZolam 0.5 MG 1 tablet as needed O rally Twice a day for 14 days 08/15/2024 Active Metoprolol Succinate Active Social History Tobacco [...] Status Risk Notes Problem Generalized anxiety disorder (98697561) Generalized anxiety disorder (F41.1) 3 Active confirmed Problem Major depressive disorder (048006869) Major depressive disorder (F32.9) 3 Active confirmed Problem Panic disorder (F41.0) 3 Active confirmed Encounters Encounter Location Date Provider Diagnosis [address] [place] [address] 10/01/2023 Kyria Seth Panic disorder F41.0 ; Major depressive disorder F32.9 and Generalized anxiety disorder F41.1 [address] [place] [address] 11/24/2023 Kyria Seth Panic disorder F41.0 ; Major depressive disorder F32.9 and Generalized anxiety disorder F41.1 [address] [place] [address] 02/23/2024 Kyria Seth Panic disorder F41.0 ; Major depressive disorder F32.9 and Generalized anxiety disorder F41.[address] [address] 06/15/2024 Kyria Seth Panic disorder F41.0 ; Major depressive disorder F32.9 and Generalized anxiety disorder F41.[address] [address] 08/09/2024 Kyria Seth Panic disorder F41.0 Assessments Encounter Date Diagnosis (ICD Code) Assessment Notes Treatment Notes Treatment Clinical Notes Section Notes 10/01/2023 Panic disorder (ICD-10 - F41.0) 02/23/2024 Panic disorder (ICD-10 - F41.0) 08/09/2024 Panic disorder (ICD-10 - F41.0) 06/15/2024 Panic disorder (ICD-10 - F41.0) 11/24/2023 Panic disorder (ICD-10 - F41.0) 11/24/2023 Major depressive disorder (ICD-10 - F32.9) 02/23/2024 Major depressive disorder (ICD-10 - F32.9) 06/15/2024 Major depressive disorder (ICD-10 - F32.9) 10/01/2023 [...] Currently, in therapy with Patrica Duarte at [facility] in [place]. Today's visit: Patient is a 38-year-old female who presents for a psychiatric follow-up, is currently located in the [facility] and is being seen over the [...] or be administered own oral medications per [place] protocols. Provided informed consent with understanding of [...] out of therapy with Patrica Duarte at [facility] in [place]. Today's visit: Patient is a 38-year-old female who presents for a psychiatric follow-up, is currently located in the [facility] and is being seen over the [...] or be administered own oral medications per [place] protocols. Provided informed consent with understanding of [...] out of therapy with Patrica Duarte at [facility] in [place]. Today's visit: Patient is a 39-year-old female who presents for a psychiatric follow-up, is currently located in the [facility] and is being seen over the [...] or be administered own oral medications per [place] protocols. Provided informed consent with understanding of [...] Currently, in therapy with Patrica Duarte at [facility] in [place]. Today's visit: Patient is a 38-year-old female who presents for a psychiatric follow-up, is currently located in the [facility] and is being seen over the [...] or be administered own oral medications per [facility] [place] protocols. Provided informed consent with understanding of side effects, adverse effects, risks and benefits as well as alternative treatments as previously discussed and with the above recommended medications & other aspects of the treatment program. Agrees to return sooner if symptoms worsen or suicidal or homicidal ideations occur. Plan Of Treatment No Information Insurance Providers Payer Name Payer Address Payer Phone Subscriber Number Group Number Insured Name Patient Relationship to Insured Coverage Start Date Coverage End Date [facility] Claims Department [address] [place] [address] [phone] [id number] Xiomara Larios Self - patient is the insured 3 [facility] Claims Department [address] [place] [address] [phone] [id number] Xiomara Larios Self - patient is the insured 3 Medical (General) History Medical History History ICD Code Diabetes mellitus 250.00 Surgical History Surgery Date(Month/Year) cyst removal 05/2022 Hospitalization History Reason Date(Month/Year) Dehydration - hospitalization and infect ed tooth - 1 day May 2024
--- OUTSIDE RECORDS SUMMARY | 2024-09-06 12:47 | XMS_ITS | Data Portability ---
Author Organization [facility] [place] Address [address] [place] [address] Care Team Providers Care Chicken Dresser Name Role Phone NYDIA MENCHACA Primary Care Provider LASHAE ACHARYA Primary Care Provider Assessment No assessment recorded. Plan of Treatment Reminders Order Date Submit Date Provider Last Modified By Organization Details Last Modified Time Details Appointments None recorded. Lab None recorded. Referral None recorded. Procedures None recorded. Surgeries laparoscopi c ovarian cystectomy (SURG) 2022 023 [facility], [address] [address], [place], [address], 3 17:16:25 Imaging US, pelvis 2022 [address], [address], [place], [address], 3 17:06:37 US, transvagina l [address], [address], [place], [address], 3 17:06:37 Medication Orders Xanax 0.5 mg tablet 2022 023 [facility] [place], [address], 15:09:23 Patient TargetsNo targets recorded. Patient InstructionsNo instructions recorded. Reason for Referral None Reported. Results Created Date Observation Date Name Description Value Unit Range Abnormal Flag Note LastModifiedBy Organization Detail LastModifiedTime 05/13/1905/13/2022 US, pelvi s No observ ation [facility] ed[email or web address] [place] [address], [place], [address], 05/13/2022 11:46:24 05/13/19 23 05/13/2022 US, trans vagin al No observ ation record ed. [email or web address], [place], [address], 05/13/2022 11:46:16 05/13/1905/13/2022 US, pelvi s No observ ation record ed. [email or web address] [facility] [address], [place], [address], 05/14/2022 12:29:54 Result Notes None recorded. Problems Name Problem SNOMED Code Status Onset Date Resolution Date Notes Provider Name and Address Organization Details Recorded Time Miscarriag e [id number] Completed 202205/14/2022 Duy Darden MD [address], [place], [address], [facility] 13:00:47 Problem Notes None recorded. Procedures Surgical History Date Name Laterality Status Provider Name and Address Organization Details Recorded Time 06/11/19 LAPAROSCOPIC OVARIAN CYSTECTOMY (SURG) completed [facility] 06/24/2022 17:46:33 06/11/19 LAPAROSCOPIC OVARIAN CYSTECTOMY (SURG) completed [facility] 06/30/2022 11:03:16 Imaging Results None recorded. Procedure Notes None recorded. Medical Equipment None [...] Not Available Not Available No t Available OneTouch Ultra Test strips USE TO CHECK BLOOD [...] Updated DateTime 05/14/2022 170.18 cm 30.5 kg/m2 22752.51 g 167 mm[Hg] 100 mm[Hg] [facility] 3 12:37:49 Date Recorded Body height Body mass index (BMI) Body weight Systolic blood pressure Diastolic blood pressure Provider Name and Address Organization Details Last Updated DateTime 06/02/2022 170.18 cm 30.7 kg/m2 87705.1 g 151 mm[Hg] 95 mm[Hg] [facility] 3 14:34:48 Date Recorded Body height Body mass index (BMI) Body weight Systolic blood pressure Diastolic blood pressure Provider Name and Address Organization Details Last Updated DateTime 06/18/2022 170.18 cm 30.7 kg/m2 87742.1 g 152 mm[Hg] 87 mm[Hg] [facility] 11:20:20 Social History Question Answer Notes LastModified by Organizat ion Details LastModified Time Tobacco Smoking Status Never Smoker Nydia Coyle [facility] 06/18/2022 11:06:14 Do You Have An Advance Directive? No Information n ot available 08/25/2021 Are You Blind Or Do [...] Or The Highest Degree You Have Received? [id number] Information not available 08/25/2021 Do You Use [...] IV Drugs? No Information not available 08/25/2021 Do You Have Difficulty Walking Or Climbing Stairs? No [email or web address] Information not available 06/18/2022 Sex: Unknown Functional Status Question Answer Note LastModified by Organizat ion Details LastModified Time Do you use any illicit or recreational drugs? No Information not available 08/25/2021 What is your level of alcohol consumption? Occasional Information not available 08/25/2021 Are you able to walk? YESWOREST Information not available 08/25/2021 Are you able to care for yourself? 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 No [email or web address] Information not available 06/18/2022 What is your exercise level? Moderate Information not available 08/25/2021 Mental Status Question Answer Note LastModified by Organization D etails LastModified Time Do you feel stressed (tense, restless, nervous, or anxious, or unable to sleep at night)? [id number] Information not available 08/25/2021 Family History Nothing Reported. Medical History Condition Response Diabetes Y Anxiety Disorder Y Hypertension Y Depression/ depression Y Psychiatric Illness Y Gynecological History Statement/Question Response Abnormal Pap [...] SNOMED-CT Code Diagnosis ICD10 Code Diagnosis Note [id number] CLIFTON Egan [place] [address] [address] 08/25/2021 11:26:22 08/25/2021 14:20:27 Vaginitis 53472167 N76.0 Here for vulvar itching and irritation x 2 monthsRece ntly diagnosed with type 2 diabetes 1 year ago. Working on BS controlWe discussed the link between uncontroll ed BS and recurrent yeast infections . Vulvar care guidelines discussed in-depth.V aginitis panel sent.Will treat for yeast.Due for WWE, patient encouraged to schedule this Contracept ion care management 209627956 Z30.9 She has been on combined oral [...] Pt verbalized understand ing. Hypertensive disorder 38 760632 I10 BP today 192/109, 166/96, and then [...] counseling and review of plan of care. [id number] CLIFTON Egan [place] [address] [address] 05/12/2022 12:09:48 05/12/2022 14:21:29 Gynecologic examination 46824620 Z01.419 Take Calcium with Vitamin D 1200mg [...] also states she went to ED with carina 3-4 months ago, had a CT scan at that time that showed a dermoid cyst on ovary that needed follow-upW e agreed to pelvic u/s for further evaluation No hx of abnormal paps per patient, unsure when last pap wasPap done todaySTI testing declinedIn creased anxiety/de pression symptoms. She is seeing a new psychiatri soon, feels like current medication regimen is not controllin g symptoms. Has tried many different medication s in the past that have made symptoms worse. Denies ever having thoughts of harming herself or others. Encouraged her to meet with psychiatrkathryn chaves, counseling encouraged . ED precaution s discussed. [...] ED precaution s discussed. Cyst of ovary 95966774 N 83.209 Mixed anxi ety and depressive disorder 212805872 F41.8 [id number] Duy Darden MD [place] [address],[place] [address] 05/13/2022 10:27:42 05/13/2022 11:05:40 Cyst of right ovary [id number] 5442953 N83.291 [id number] Duy Darden MD [place] [address],[place] [address] 05/14/2022 12:22:53 05/15/2022 10:42:39 Benign teratoma of ovary 710264411 D27.9 this patient is a 37-year-ol d [...] risk. More than 50% was counseling . [id number] Duy Darden MD [place] [address],[place] [address] 06/02/2022 14:19:37 06/02/2022 15:23:01 [address] F41.[address] atoma of ovary 821877364 D27.9 this patient is a 37-year-ol d female presents for preoperati ve care. She has a dermoid cyst. We agreed to perform laparoscop ic ovarian cystectomy . She understand s the risks, benefits, and alternativ es. She has completed the informed consent process and is ready to proceed. [id number] uDy Darden MD [place] [address],[place] [address] 06/11/2022 10:25:49 06/11/2022 10:30:07 [id number] Duy Darden MD [place] [address] [address] 06/18/2022 11:06:10 06/18/2022 11:49:04 Postoperative care 158664858 Z48.89 this patient is a 37-year-ol d [...] None Recorded Advance Directives Directive N: Payers Insurance Date Sequence Insurance Name Policy Number Policy Giang Covered Member ID Giang Member ID Guarantor Name 06/17/2022 1 [facility] [employer] [id number] Xiomarafariha Larios 06/17/2022 1 [employer] [facility] (PPO) Xiomara Stemina [employer] [id number] Xiomara Neearl 06/17/2022 1 [facility] - DOS ON OR AFTER 20 (MEDICAID REPLACEMENT - HMO) [id number] Xiomarafariha Goldearl [id number] Xiomara Ric Notes Date Note Type Note Provider Name [...] of hemorrhage and infection. Duy Darden MD [address], [place], [address], [facility] 05/15/2022 00:07:43 06/02/2022 text/html This patient [...] infection. Duy Darden MD [address], [place], [address], [facility] 06/02/2022 15:22:15 06/18/2022 text/html [...] problems. Duy Darden MD [address], [place], [address], [facility] 06/18/2022 11:47:46 OBGyn Episode Ob Episode Information Episode Created Date Number of Fetuses Patient Bloodtype Patient rh Status Prepregnancy Weight lbs Domestic Partner Domestic Partner Phone Father Name Loan Examiner Status 06/19/19 23 1 CLOSED Fetus Data First Name Last Name Admitted to NICU Weight (g) Sex Living Outcome Pediatric Complications Fetus ID Race Codes Race Delivery Type , Spontane ous [id number] Can Calculation Initial Can Date Initial Exam [...]
--- OUTSIDE RECORDS SUMMARY | 2024-09-06 12:47 | XMS_ITS | Referral Summary ---
Author Organization [facility] [address] [place] Address [address] [place] [address] Care Team Providers Care Shoe Sticks Repairer Name Role Phone Higinio Ramey Primary Care Provider [phone] Allergies No known active allergies Medications buPROPion [...] Plan of Treatment Not on file Insurance [id number] [facility] Care Teams Shoe Sticks Repairer Relationship Specialty Start Date End Date Higinio Ramey DO [facility] [place] [address] [address] PCP - General Family Medicine 08/05/23
== END 2024-09-06 10:56 | disposition home or self-care (01) ==
PROVIDERS: PCP Nurse Practitioner; Visit Provider Nurse Practitioner Family
DX: E04.1 Nontoxic single thyroid nodule (principal)
CPT/HCPCS: 76536